=== PATIENT | female | born 1965 ===

== ENCOUNTER 2021-03-20 16:57 | Emergency (ER) | payer OTHER, MEDICAID, SELFPAY ==
--- NOTE | ~2021-03-20 | CT_ITS ---
EXAMINATION: CT ABDOMEN AND PELVIS WITH CONTRAST CLINICAL INFORMATION: Lower abdomen pain. Diarrhea. Clinical concern for colitis COMPARISON: None TECHNIQUE: Multidetector volumetric images were obtained from the superior aspect of the liver through the pubic symphysis following administration 85 mL of Omnipaque 350 intravenous contrast. Sagittal and coronal reformatted images were obtained on the technologist's workstation. Oral contrast: No This CT examination was performed using dose optimization techniques as appropriate, variously including the following: *Automated exposure control *Adjustment of mA and/or kV according to patient size (this includes techniques or standardized protocols for targeted exams where dose is matched to indication/reason for exam; i.e. extremities or head) *Use of iterative reconstruction technique DLP: 552 mGy-cm FINDINGS: Digital supervisor intermediates: No evidence of small bowel obstruction. Surgical clips right upper quadrant. No evidence of pneumoperitoneum LUNG BASES: No suspicious abnormality in the visualized lower chest LIVER, GALLBLADDER, AND BILIARY TREE: The liver contour is smooth. No suspicious focal lesion. There are surgical clips in the expected region of the gallbladder. There is no opaque biliary calculus. PANCREAS: No pancreatic mass. No localized peripancreatic stranding. SPLEEN: No suspicious abnormality. ADRENAL GLANDS: Within normal limits KIDNEYS AND URETERS: There is no significant dilation of the intrarenal collecting system on either side. No suspicious renal mass. The nephrograms are symmetric. BLADDER: No suspicious abnormality GASTROINTESTINAL TRACT: There is fluid in the colon suggesting some dysfunction. There is no definite colonic wall thickening. No pericolonic fat stranding. No CT evidence of acute appendicitis. No significant small bowel dilation. No suspicious abnormality the stomach. ABDOMINAL WALL: No significant hernia is appreciated. LYMPH NODES: There are no measurably enlarged abdominal or pelvic lymph nodes. There is no free peritoneal fluid. VASCULAR: There is no abdominal aortic aneurysm. There is atherosclerotic calcification. The portal vein enhances. PELVIC VISCERA: The uterus is retroflexed. No suspicious adnexal mass or collection. OSSEOUS STRUCTURES: No suspicious focal lesion. There is at least some disc protrusion at L5/S1. CT/CT abdomen pelvis w con IMPRESSION: No CT evidence of colitis or abscess. There is fluid throughout the colon which is abnormal.
[2021-03-20 17:25] VITALS: BP 96/66; PULSE 100; RESP 18; TEMP 37.3; O2SAT 96; BMI 27.1
--- NOTE | 2021-03-20 18:43 | ED.ABDPAIN ---
HPI - Abdominal Pain General Chief Complaint: Weakness Stated Complaint: diarrhea Time Seen by Provider: 03/20/21 18:39 Source: patient and family Mode of arrival: ambulatory Limitations: no limitations History of Present Illness MD elicited complaint: abdominal pain Pertinent past history: none Onset (ago): hour(s) (started upon waking early this AM) Pain Consistency: constant Location: diffuse Severity: moderate Quality: cramping Radiation: none Migration to: no migration Exacerbating factors: eating Relieving factors: nothing Context: possible food poisoning Associated symptoms: nausea, diarrhea and chills Related Data Previous Rx's Medication Instructions Recorded metronidazole [Flagyl] 500 mg PO BID 7 Days #14 tab 03/20/21 ondansetron 4 mg PO Q8H PRN #20 tab 03/20/21 oxycodone 5 mg PO TID PRN 3 Days #14 tab 03/20/21 Allergies Allergy/AdvReac Type Severity Reaction Status Date / Time No Known Allergies Allergy Unverified 05/14/20 19:29 Review of Systems Review of Systems Constitutional : No Weight loss, No Fever, pos Chills ENT/Mouth : No sore throat, No Rhinorrhea Eyes: No Swelling, No Redness Cardiovascular : No Chest Pain, No SOB, NoEdema Respiratory : No Cough, No Sputum, No Wheezing Gastrointestinal : Positive Nausea, no Vomiting, positive Diarrhea, positive abdominal Pain, No Hematochezia, No Melena Genitourinary : No Dysuria, No Urinary Frequency, No Hematuria, No Urgency Musculoskeletal : No joint pain, No Myalgias, No Joint Swelling Skin : No Skin Lesions, No rash Neuro : No Weakness, No Numbness, No Dizziness, No Headache Psych : No Anxiety/Panic, No Depression Heme/Lymph: No Bruising, No Lymphadenopathy Endocrine : No Polyuria, No Polydipsia All other systems reviewed and are negative. Physical Exam Vital Signs: Vital Signs: Last Vital Signs Temp 98.2 F 03/20/21 20:07 Pulse 77 03/20/21 20:07 Resp 18 03/20/21 20:07 BP 112/65 03/20/21 20:07 Pulse Ox 98 03/20/21 20:07 Body Mass Index 27.1 Appearance: Alert. Oriented X3. No acute distress. Eyes: Pupils equal, round and reactive to light. ENT: Pharynx normal. Neck: Normal inspection. Neck supple. CVS: Normal heart rate and rhythm. Pulses normal. Respiratory: No respiratory distress. Breath sounds normal. Abdomen: Soft and mild diffuse ttp with some distention Skin: Skin warm and dry. Normal skin color. Normal skin turgor. Extremities: No lower extremity edema. No calf ttp Neuro: Oriented X 3. No motor deficit. No sensory deficit. Course Course Course Narrative: patient feels much better able to tolerate PO without issue given CT scan will start on flagyl and start on BRAT diet, patient aware and agrees. slight bump in LFTs will refer for recheck by Monday MDM - Abdominal Pain MDM Narrative Medical decision making narrative: 55 yo female no sig PMH here with diarrhea, bloating, chills no recent abx use possible food poisoning at this time will need labs, IVF, symptom control, CT scan for colitis. Dispo per results and findings. Differential Diagnosis Differential diagnosis: Likely abdominal pain, gastroenteritis and gastritis; Unlikely aortic dissection and mesenteric ischemia Lab Data Result diagrams: 03/20/21 19:34 03/20/21 19:34 Labs: Lab Results 03/20/21 03/20/21 03/20/21 Range/Units 19:22 19:34 19:34 WBC 11.6 H (4.8-10.8) X10*3/uL RBC 4.79 (4.20-5.50) X10*6/uL Hgb 14.3 (12.0-16.0) g/dl Hct 42.8 (37-47) % MCV 89.4 (80-98) fL MCH 29.9 (27.0-33.0) pg MCHC 33.4 (31.0-35.0) g/dl RDW 13.8 (11.0-16.0) % Plt Count 309 (160-400) X10*3/uL MPV 10.8 (9.4-12.3) fL Immature Gran % (Auto) 0.3 (0.0-0.4) % Neut % (Auto) 84.8 H (45-73) % Lymph % (Auto) 9.7 L (20-40) % Rapides % (Auto) 4.7 (2-11) % Eos % (Auto) 0.4 (0-4) % Baso % (Auto) 0.1 (0-2) % Lymph # (Auto) 1.1 L (1.2-4.9) X10*3/uL Rapides # (Auto) 0.5 (0.1-1.2) X10*3/uL Eos # (Auto) 0.1 (0.0-0.4) X10*3/uL Baso # (Auto) 0.0 (0.0-0.2) X10*3/uL Abs Immat Gran (auto) 0.03 (0.00-0.03) X10*3/uL Absolute Neuts (auto) 9.8 H (2.0-8.3) X10*3/uL Absolute Nucleated RBC 0.000 (0.0-0.012) X10*3/uL Nucleated RBC % (auto) 0.0 (0.0-0.2) /100WBC Sodium 139 (135-145) mmol/L Potassium 3.7 (3.3-5.1) mmol/L Chloride 108 (96-108) mmol/L Carbon Dioxide 21 L (22-29) mmol/L Anion Gap 14 (12-20) BUN 15 (9-16) mg/dL Creatinine 0.66 (0.5-1.4) mg/dL Estim Creat Clear Calc 87.5 Estimated GFR > 60 Random Glucose 108 (60-115) mg/dL Calcium 8.5 (8.4-10.2) mg/dL Magnesium 2.0 (1.6-2.6) mg/dL Total Bilirubin 0.4 (0.0-1.0) mg/dL Direct Bilirubin < 0.2 (0.0-0.5) mg/dL AST 70 H (5-31) U/L ALT 75 H (0-31) U/L Alkaline Phosphatase 84 (39-117) U/L Total Protein 7.1 (6.5-8.0) g/dL Albumin 4.2 (3.5-5.0) g/dL Lipase 21 (8-78) U/L Urine Color YELLOW Urine Appearance CLEAR Urine pH 6.0 (5.0-8.0) Ur Specific Franklin >= 1.030 H (1.005-1.025) Urine Protein TRACE (NEG-TRACE) MG/DL Urine Glucose (UA) NEG (NEG) MG/DL Urine Ketones NEG (NEG) MG/DL Urine Blood 2+ H (NEG) Urine Nitrite NEG (NEG) Ur Leukocyte Esterase NEG (NEG) Urine RBC 5-9 H (0) /HPF Urine WBC 0-2 (0-4) /HPF Ur Squamous Epith Cells 1+ /LPF Urine Bacteria NONE /LPF Urine Mucus 2+ /LPF Discharge Plan Discharge Clinical Impression: Abdominal pain, Colitis, Elevated LFTs Patient Disposition: Home, Self-Care Instructions: Abdominal Pain (ED), Colitis (ED) Additional Instructions: return to ED for any worsening symptoms or concerns REPEAT LIVER FUNCTION TESTING WITH PRIMARY CARE DOCTOR IN 2 DAYS Prescriptions: New metronidazole [Flagyl] 500 mg tablet 500 mg PO BID 7 Days Qty: 14 RF: 0 oxycodone 5 mg tablet 5 mg PO TID PRN (Reason: pain) 3 Days Qty: 14 RF: 0 ondansetron 4 mg tablet,disintegrating 4 mg PO Q8H PRN (Reason: nausea and vomiting) Qty: 20 RF: 0 Referrals: Physician,Unknown [Primary Care Provider] - 2 days Stand Alone Forms: Work/School Release Print Language: Uzbek [facility] Past Medical History Attestation statement: The following information was validated with the patient. Medical History (Updated 03/20/21 @ 21:38 by Alina Deleon DO) No active medical problems Surgical History (Updated 03/20/21 @ 18:52 by Alina Deleon DO) Hx of cholecystectomy Social History Social History (Updated 03/20/21 @ 18:52 by Alina Deleon DO) Alcohol intake: never Patient Tobacco Use Status: Current someday Tobacco user Advance Directives: No
[2021-03-20] MEDS: Famotidine/PF 20 MG/2 ML VIAL IVPUSH (19:36)
[2021-03-20] MEDS: Ketorolac Tromethamine 15 MG/ML VIAL IVPUSH (19:36)
[2021-03-20] MEDS: ondansetron HCL 4 MG/2 ML VIAL IVPUSH (19:37)
[2021-03-20] MEDS: 0.9 % Sodium Chloride 1,000 ML 999 ML IVCONT ×2 (19:37→20:53)
[2021-03-20 19:40] LABS: MANUAL DIFF FLAG NO
[2021-03-20 19:41] LABS: Basophils Percent Auto 0.1 % (0-2); Eosinophils Absolute Auto 0.1 X10*3/uL (0.0-0.4); Eosinophils Percent Auto 0.4 % (0-4); Hematocrit 42.8 % (37-47); Hemoglobin 14.3 g/dl (12.0-16.0); Imm Gran Abs Auto 0.03 X10*3/uL (0.00-0.03); Imm Gran Pct Auto 0.3 % (0.0-0.4); Lymphocytes Absolute Auto 1.1 X10*3/uL (1.2-4.9); Lymphocytes Percent Auto 9.7 % (20-40); Mean Corpuscular HGB Conc 33.4 g/dl (31.0-35.0); Mean Corpuscular Hemoglobin 29.9 pg (27.0-33.0); Mean Corpuscular Volume 89.4 fL (80-98); Mean Platelet Volume 10.8 fL (9.4-12.3); Monocytes Absolute Auto 0.5 X10*3/uL (0.1-1.2); Monocytes Percent Auto 4.7 % (2-11); Neutrophils Absolute Auto 9.8 X10*3/uL (2.0-8.3); Neutrophils Percent Auto 84.8 % (45-73); Platelet Count 309 X10*3/uL (160-400); Red Blood Count 4.79 X10*6/uL (4.20-5.50); Red Cell Distribution Width 13.8 % (11.0-16.0); White Blood Count 11.6 X10*3/uL (4.8-10.8)
[2021-03-20 19:46] LABS: Glucose Urine UA NEG (NEG); Leukocyte Esterase Urine NEG (NEG); Nitrite Urine NEG (NEG); Specific Gravity - Urine >= 1.030 (1.005-1.025); Urine Blood 2+ (NEG); Urine Ketones NEG (NEG); Urine Protein TRACE MG/DL (NEG-TRACE)
[2021-03-20 19:47] LABS: Appearance Urine CLEAR; Color Urine YELLOW
[2021-03-20 20:02] LABS: Squamous Epithelial Cell Urine 1+ /LPF; WBC Urine 0-2 /HPF (0-4)
[2021-03-20 20:04] LABS: Mucus Urine 2+ /LPF
[2021-03-20 20:07] VITALS: BP 112/65; PULSE 77; RESP 18; TEMP 36.8; O2SAT 98
[2021-03-20 20:09] LABS: Alanine Aminotransferase 75 U/L (0-31); Albumin Level 4.2 g/dL (3.5-5.0); Alkaline Phosphatase 84 U/L (39-117); Anion Gap 14 (12-20); Aspartate Amino Transferase 70 U/L (5-31); Bilirubin Direct < 0.2 mg/dL (0.0-0.5); Bilirubin Total 0.4 mg/dL (0.0-1.0); Blood Urea Nitrogen 15 mg/dL (9-16); Calcium 8.5 mg/dL (8.4-10.2); Carbon Dioxide 21 mmol/L (22-29); Chloride 108 mmol/L (96-108); Creatinine Clr Calc Pharmacy 87.5; Estimated Glomerular Filt Rate > 60; Glucose Random 108 mg/dL (60-115); Lipase 21 U/L (8-78); Potassium 3.7 mmol/L (3.3-5.1); Sodium 139 mmol/L (135-145); Total Protein 7.1 g/dL (6.5-8.0)
[2021-03-20] MEDS: iohexoL 350 MG/ML 100 ML INFUS..BTL IV (20:57)
[2021-03-20] MEDS: metroNIDAZOLE 500 MG TABLET PO (21:46)
[2021-03-20 22:44] VITALS: BP 109/65; PULSE 93; RESP 18; TEMP 36.9; O2SAT 98
== END 2021-03-20 22:46 | disposition home or self-care (01) ==
PROVIDERS: Emergency Provider Emergency Medicine
DX: K52.9 Noninfective gastroenteritis and colitis, unspecified (principal); R10.9 Unspecified abdominal pain; R79.89 Other specified abnormal findings of blood chemistry; F17.210 Nicotine dependence, cigarettes, uncomplicated
CPT/HCPCS: 36415; 74177; 80048; 80076; 81001; 83690; 83735; 85025; 96361; 96374; 96375; 99284; J1885; J2405; Q9967

== ENCOUNTER 2021-12-01 11:59 | Outpatient (REF) | payer MEDICAID, OTHER, SELFPAY ==
--- NOTE | ~2021-12-01 | XR_ITS ---
EXAMINATION: XR LUMBOSACRAL SPINE CLINICAL INFORMATION: Low back pain COMPARISON: CT dated 03/20/2021 TECHNIQUE: Three views of the lumbosacral spine. FINDINGS: No acute fracture or traumatic malalignment. Vertebral body heights maintained. Mild loss of disc space height at L5-S1. Mild facet arthropathy L4-L5 and L5-S1. Paraspinal soft tissues unremarkable. XR/XR lumbar spine 2-3V IMPRESSION: * No acute findings. * Mild loss of disc space height at L5-S1. On the previous CT, there was a broad-based posterior disc protrusion at this level.
== END 2021-12-01 12:00 | disposition home or self-care (01) ==
LOC: HO.XRAY 11:59
PROVIDERS: Absent Provider Internal Medicine; PCP Internal Medicine; Visit Provider Registered Nurse Community Health
DX: M54.50 Low back pain, unspecified (principal)
CPT/HCPCS: 72100

== ENCOUNTER 2021-12-21 15:49 | Outpatient (REF) | payer MEDICAID, OTHER, SELFPAY ==
--- NOTE | ~2021-12-21 | MR_ITS ---
EXAMINATION: MR LUMBAR SPINE WITHOUT CONTRAST CLINICAL INFORMATION: Low back pain unspecified. COMPARISON: None TECHNIQUE: MRI of the lumbar spine was obtained using routine sequences without contrast. FINDINGS: The lumbar vertebral bodies maintain normal heights. There is disc height loss at L5-S1. The remainder the disc heights are preserved. No bone marrow edema is seen. The distal spinal cord appears normal. The conus medullaris terminates normally at the L1 level. The visualized paraspinal muscles and intra-abdominal and pelvic contents are within normal limits. SPINAL LEVELS: L1-L2: No posterior disc abnormality. No spinal canal or neural foraminal stenosis. L2-L3: No posterior disc abnormality. No spinal canal or neural foraminal stenosis. L3-L4: No posterior disc abnormality. No spinal canal or neural foraminal stenosis. L4-L5: Disc bulging with left foraminal/extraforaminal annular fissuring and moderate facet arthropathy. Bilateral subarticular stenosis and mild spinal canal stenosis. Left foraminal protrusion abuts the exiting left L4 nerve root. Mild narrowing the right neural foramen. L5-S1: Disc bulging with broad-based left subarticular protrusion resulting in compression of the traversing left S1 nerve root. Mild to moderate facet arthropathy. Mild to moderate bilateral neural foraminal stenosis. No significant narrowing of the spinal canal. MR/MR lumbar spine wo con IMPRESSION: At L5-S1 there is left subarticular protrusion causing compression of the traversing left S1 nerve root. Mild to moderate bilateral neural foraminal stenosis. At L4-L5 there is left foraminal protrusion causing abutment of the exiting left L4 nerve root.
== END 2021-12-21 15:50 | disposition home or self-care (01) ==
LOC: HO.MRI 15:49
PROVIDERS: Visit Provider Internal Medicine
DX: M51.26 Other intervertebral disc displacement, lumbar region (principal)
CPT/HCPCS: 72148

== ENCOUNTER 2021-12-29 12:56 | Outpatient (REF) | payer MEDICAID, OTHER, SELFPAY ==
--- NOTE | ~2021-12-29 | MM_ITS ---
EXAMINATION: BONE DENSITOMETRY CLINICAL INDICATION: Encounter for screening for osteoporosis. COMPARISON: This is the patient's baseline examination. TECHNIQUE: Using a [employer] DXA System (software version: 13.1) manufactured by [employer], dual-energy x-ray absorptiometry was performed of the lumbar spine and left hip. The images are of good technical quality. Summary results are attached. FINDINGS: AP SPINE L1-L4: BMD 1.046 g/cm2, Z-score -0.6, T-score -1.1, osteopenia. LEFT FEMUR, NECK: BMD 0.856 g/cm2, Z-score -0.5, T-score -1.3, osteopenia. LEFT FEMUR, TOTAL: BMD 0.937 g/cm2, Z-score -0.1, T-score -0.6, normal. IDENTIFIED RISK FACTORS: Early menopause, secondary osteoporosis, low calcium intake. HISTORY OF FRACTURE: None listed. MEDICATIONS: None listed. MM/XR DEXA axial skeleton IMPRESSION: 1. DIAGNOSIS: Osteopenia based on the lowest T-score value of -1.3 in the femoral neck applying World Health Organization criteria. 2. 10-YEAR FRACTURE RISK PREDICTION, FRAX: Major osteoporotic fracture (clinical spine, forearm, hip or shoulder) 3.4%. Hip fracture 0.2%. 3. Treatment Recommendations: NOF guidelines recommend consideration for treatment in postmenopausal women and men age 50 and older presenting with the following: -A hip or vertebral (clinical or morphometric) fracture. -T-score less than or equal to -2.5 at the femoral neck or spine after appropriate evaluation to exclude secondary causes. -Low bone mass at the hip or spine and a 10-year fracture probability by FRAX of greater than or equal to 3% for hip fracture or greater than or equal to 20% for major osteoporotic fracture based on the [place] adapted WHO algorithm. 4. Other Recommendations: All treatment decisions require clinical judgment and consideration of individual patient factors, including patient preferences, comorbidities, previous drug use, risk factors not captured in the FRAX model (e.g. frailty, falls, vitamin D deficiency, increased bone turnover, interval significant decline in bone density) and possible under or overestimation of fracture risk by FRAX. Additional medical evaluation for secondary cause of low bone mineral density may be appropriate. FUTURE SCAN RECOMMENDATION: People with diagnosed cases of osteoporosis or at high risk for fracture should have regular bone mineral density tests. For patients eligible for Medicare, routine testing is allowed once every 2 years. The testing frequency can be increased to one year for patients who have rapidly progressing disease, those who are receiving or discontinuing medical therapy to restore bone mass, or have additional risk factors.
--- NOTE | ~2021-12-29 | MM_ITS ---
EXAMINATION: MM SCREENING DIGITAL BREAST TOMOSYNTHESIS, BILATERAL CLINICAL INFORMATION: Screening. Asymptomatic. The lifetime risk of breast cancer based on the Tyrer-Cuzick Model is 9%. COMPARISON: Mammography: 06/05/2018 (new baseline) TECHNIQUE: Digital breast tomosynthesis is performed in both the craniocaudal and mediolateral oblique views along with computer-aided detection (CAD). Synthesized 2D images are generated from the tomosynthesis. FINDINGS: There are scattered areas of fibroglandular density (ACR BI-RADS breast composition Category b). There are no significant masses, abnormal calcifications, or other abnormalities. Parenchymal pattern is similar to prior exam. There is mild bilateral nipple retraction again seen. The axilla are unremarkable. No significant changes. MM/MM tomosynthesis screening BI IMPRESSION: No mammographic evidence of malignancy. ASSESSMENT: BI-RADS 2: Benign RECOMMENDATION: Routine annual mammography screening. This patient's information was entered into a reminder system with a target due date for their next mammogram.
== END 2021-12-29 12:57 | disposition home or self-care (01) ==
LOC: HO.MAMMO 12:56
PROVIDERS: Visit Provider Advanced Practice Midwife
DX: Z12.31 Encounter for screening mammogram for malignant neoplasm of breast (principal); Z13.820 Encounter for screening for osteoporosis; N95.1 Menopausal and female climacteric states
CPT/HCPCS: 77063; 77067; 77080

== ENCOUNTER 2022-10-22 07:06 | Outpatient (REF) | payer OTHER, SELFPAY ==
[2022-10-22 07:45] LABS: COVID-19 Test Negative (Negative); IDNOW Serial# BCCEAD1C
== END 2022-10-22 07:07 | disposition home or self-care (01) ==
LOC: HO.LAB 07:06
PROVIDERS: Visit Provider Internal Medicine
DX: Z20.822 Contact with and (suspected) exposure to COVID-19 (principal)
CPT/HCPCS: 87635

== ENCOUNTER → 2022-11-30 09:41 | Outpatient (BNVA) | payer OTHER, SELFPAY | PROVIDERS: PCP Internal Medicine; Visit Provider Internal Medicine | DX: R07.2 Precordial pain (principal); Z82.49 Family history of ischemic heart disease and other diseases of the circulatory system | CPT/HCPCS: 93005; 99202 ==

== ENCOUNTER 2023-02-08 22:01 | Emergency (ER) | payer OTHER, SELFPAY ==
[2023-02-08 22:14] VITALS: BP 120/66; PULSE 75; RESP 18; TEMP 36.6; O2SAT 98; BMI 26.5
[2023-02-08 23:34] VITALS: BP 130/73; PULSE 79; RESP 16; TEMP 36.4; O2SAT 98
--- NOTE | 2023-02-09 00:58 | ED.BACK ---
HPI - Back Pain/Injury General Chief Complaint: Back Pain/Injury Stated Complaint: pain Time Seen by Provider: 02/09/23 00:25 Source: patient and citizen participation specialist Mode of arrival: ambulatory Limitations: no limitations History of Present Illness HPI Narrative: 57-year-old female with history of back injury and chronic back pain presented with acute on chronic low back pain, patient declined any radiation of the back to the lower extremities, no urinary or stool incontinence, no weakness or numbness in the lower extremities, no recent trauma to the lower back. Related Data Previous Rx's Medication Instructions Recorded cyclobenzaprine 10 mg tablet 10 mg PO TID PRN muscle spasm #14 02/09/23 tabs naproxen 500 mg tablet (Naprosyn) 500 mg PO BID PRN pain #20 tabs 02/09/23 Allergies Allergy/AdvReac Type Severity Reaction Status Date / Time No Known Allergies Allergy Verified 11/30/22 10:01 Review of Systems Review of Systems: All other systems are reviewed and are negative Constitutional: Reports as per HPI and Reports no additional constitutional complaints Eyes: Reports as per HPI and Reports no additional eye complaints Reports system reviewed and no additional complaints, except as documented Cardiovascular: Reports as per HPI and Reports no additional cardiovascular complaints Respiratory: Reports as per HPI and Reports no additional respiratory complaints Gastrointestinal: Reports as per HPI and Reports no additional gastrointestinal complaints Genitourinary: Reports no additional female genitourinary complaints Musculoskeletal: Reports no additional musculoskeletal complaints Skin/Breast: Reports system reviewed and no additional complaints, except as docu Psychiatric: Reports no additional psychiatric complaints Endocrine: Reports no additional endocrine complaints Hematologic/Lymphatic: Reports no additional hematologic/lymphatic complaints Allergic/Immunologic: Reports no additional allergic/immunologic complaints Reports system reviewed and no additional complaints, except as documented and Reports Abnormal speech present [facility] [place] Past Medical History Medical History No active medical problems Surgical History Hx of cholecystectomy Family History Family History Mother Heart problem Father Stroke Social History Social History Alcohol intake: never Patient Tobacco Use Status: Former Tobacco user Quit Date: 2020 Advance Directives: No Advance Directives Information Provided: Yes Physical Exam Vital Signs: Vital Signs: Last Vital Signs Temp 97.6 F 02/08/23 23:34 Pulse 79 02/08/23 23:34 Resp 16 02/08/23 23:34 BP 130/73 02/08/23 23:34 Pulse Ox 98 02/08/23 23:34 O2 Del Method Room Air 02/08/23 23:34 BMI result Body Mass Index 26.5 Vital signs have been reviewed as appeared to be correct. Blood pressure normal. Heart rate normal. Respiration rate normal. Temperature normal. Oxygen saturation normal. Appearance: Alert. Oriented X3. No acute distress. Head: Normal external exam. Normocephalic. Atraumatic. No Nunes signs noted. No raccoon eyes noted Eyes: PERRLA. EOMI. Conjunctiva and sclera normal. Eyelids normal. ENT: TM's Normal. Pharynx normal. Uvula midline. Moist mucous membranes. No trismus noted. No drooling noted. No muffled voice noted. Neck: Normal inspection. Neck supple. FROM. No adenopathy. Thyroid Normal. No meningeal signs. No neck mass noted. CVS: Normal heart rate and rhythm. Heart sound normal. No murmurs noted. Pulses normal throughout. Respiratory: No respiratory distress. Painless inspiration. Breath sounds normal. No wheezes/rales/rhonchi noted. Chest nontender. No accessory muscle usage noted or decreased air movement noted. Abdomen: Soft and nontender. Bowel sounds normal in all 4 quadrants. No distention noted. No organomegaly noted. No visible injury noted. Back: No CVA tenderness. Full range of motion noted. Skin: Skin warm and dry. Normal skin color. Normal skin turgor. No rashes/lesions/lacerations noted. Extremities: No lower extremity edema. Extremities exhibit normal range of motion. Extremities nontender. Neuro: Oriented X 3. Cranial nerve exam: II-XII are grossly intact No motor deficit. No sensory deficit. Reflexes normal. Course Course Course Narrative: Acute on chronic low back pain. Muscle relaxing, NSAIDs, rest, heating pad. Medical Decision Making Differential Diagnosis Differential Diagnoses: The differential diagnosis associated with the presentation includes (Lumbar radiculopathy, lumbar muscle sprain, neurological deficit.) Discharge Plan Discharge Clinical Impression: Strain of lumbar region Patient Disposition: Home, Self-Care Instructions: Muscle Strain (DC) Prescriptions: New cyclobenzaprine 10 mg tablet 10 mg PO TID PRN (Reason: muscle spasm) Qty: 14 0RF naproxen [Naprosyn] 500 mg tablet 500 mg PO BID PRN (Reason: pain) Qty: 20 0RF Stand Alone Forms: Work/School Release
[2023-02-09] MEDS: Cyclobenzaprine HCl 10 MG TABLET PO (01:24)
[2023-02-09] MEDS: Ibuprofen 800 MG TABLET PO (01:24)
== END 2023-02-09 01:30 | disposition home or self-care (01) ==
PROVIDERS: Emergency Provider Emergency Medicine
DX: S39.012A Strain of muscle, fascia and tendon of lower back, initial encounter (principal); X58.XXXA Exposure to other specified factors, initial encounter; Y93.9 Activity, unspecified; Y92.9 Unspecified place or not applicable; Y99.9 Unspecified external cause status; G89.29 Other chronic pain
CPT/HCPCS: 99283

== ENCOUNTER 2023-03-20 16:42 | Outpatient (REF) | payer OTHER, SELFPAY ==
[2023-03-20 18:15] LABS: Anion Gap 11 (12-20); Blood Urea Nitrogen 17 mg/dL (9-16); Calcium 9.4 mg/dL (8.4-10.2); Carbon Dioxide 27 mmol/L (22-29); Chloride 106 mmol/L (96-108); Estimated Glomerular Filt Rate > 60; Glucose Random 94 mg/dL (60-115); Potassium 4.1 mmol/L (3.3-5.1); Sodium 140 mmol/L (135-145)
[2023-03-20 18:20] LABS: Alanine Aminotransferase 23 U/L (0-31); Albumin Level 4.2 g/dL (3.5-5.0); Alkaline Phosphatase 81 U/L (39-117); Aspartate Amino Transferase 25 U/L (5-31); Bilirubin Direct < 0.2 mg/dL (0.0-0.5); Bilirubin Total 0.2 mg/dL (0.0-1.0); Total Protein 7.3 g/dL (6.5-8.0)
== END 2023-03-20 16:43 | disposition home or self-care (01) ==
LOC: HO.HHCL 16:42
PROVIDERS: Absent Provider Internal Medicine; Visit Provider Family Medicine
DX: R07.2 Precordial pain (principal); B35.1 Tinea unguium
CPT/HCPCS: 36415; 80048; 80076

== ENCOUNTER → 2023-03-24 15:22 | Outpatient (BNVA) | payer OTHER, SELFPAY | PROVIDERS: Visit Provider Physician Assistant | DX: Z13.89 Encounter for screening for other disorder (principal) | CPT/HCPCS: 12001; 99203 ==

== ENCOUNTER → 2023-03-28 13:55 | Outpatient (BNVA) | payer OTHER, SELFPAY | PROVIDERS: Visit Provider Physician Assistant Medical | DX: Z13.89 Encounter for screening for other disorder (principal) | CPT/HCPCS: 99213 ==

== ENCOUNTER 2023-03-30 09:19 | Outpatient (AMB) | payer OTHER, SELFPAY ==
--- NOTE | 2023-03-30 09:24 | MHC.OFFVIS ---
Intake Vital Signs 03/30/23 09:25 Height 5 ft 5 in Weight 162 lb 4.163 oz BMI 27.0 BP 116/70 Blood Pressure Location Rt brachial Position Sitting Pulse 68 Pulse Source Pulse Oximeter Temp 97.5 F Pulse Oximetry (%) 97 Oxygen Delivery Method Room Air Intake Visit Reasons: Paresthesias Intake Note: Pt presents in office for Paresthesias. Meat Carrier Required: Yes Meat Carrier Name: Michel Allergies No Known Allergies Allergy (Verified 03/30/23 09:33) HPI HPI Comments History of Present Illness Details This is a 57-year-old female who presents for evaluation of multiple joint pain. Patient states that she has had lower back pain that intermittently radiates to or legs for about 6 years. He the pain is worse with certain movements. Improved with anti-inflammatories and muscle relaxants. For the last 2 years she has had left elbow pain. She also has left medial knee pain and right posterior knee pain. A few days ago she cut the ulnar aspect of her right hand while cleaning. She has a Band-Aid on it today. Patient denies any family history of autoimmune rheumatic disease. Denies any history of DVT/PE. Patient had 4 pregnancies and 1 miscarriage. She denies any skin rash PFSH Medical History (Updated 03/30/23 @ 10:36 by Robin Michael MD) No active medical problems Surgical History (Updated 03/30/23 @ 09:37 by Radha Stafford CMA) History of section Hx of cholecystectomy Family History Mother Heart problem Father Stroke Social History (Updated 03/30/23 @ 09:38 by Radha Stafford CMA) Alcohol intake: never Patient Tobacco Use Status: Former Tobacco user Quit Date: 2020 Female Reproductive History Menstrual Total pregnancies: 4 Ab spontaneous: 1 Review of Systems Const Reports fatigue Eyes Reports dry eyes, Reports irritation and Reports eye pain Card Reports dyspnea Resp Reports cough and Reports dyspnea GI Reports heartburn and Reports nausea Musc Reports back pain, Reports deformity and Reports arthralgias Skin/Breast Denies rash Endo Reports fatigue Physical Exam Vital Signs: Last Vital Signs Temp 97.5 F 03/30/23 09:25 Pulse 68 03/30/23 09:25 BP 116/70 03/30/23 09:25 Pulse Ox 97 03/30/23 09:25 Oxygen Delivery Method Room Air 03/30/23 09:25 BMI result Body Mass Index 27.0 Const General: cooperative, healthy appearing and comfortable Nutritional Appearance: overweight Orientation/consciousness: patient oriented x3 Limitations: no limitations HEENT Head: Yes normocephalic and Yes atraumatic Mouth: moist mucous membranes Resp Effort & Inspection: normal respiratory effort and able to speak in complete sentences Auscultation: clear to auscultation bilaterally Cardio Rate: regular rate Rhythm: regular rhythm GI Inspection: No distended Palpation (GI): Soft to palpation and nontender Neuro General: patient oriented x3 Extrem Other: Some tenderness to palpation the left medial epicondyle area Negative resisted wrist extension test bilaterally Normal range of motion of both shoulders No active synovitis Some osteoarthritic changes of both hands with prominent Magali's and Heberden's nodes Left medial knee tenderness Assessment & Plan Assessment & Plan (1) Golfers elbow of left upper extremity: Code(s): M77.02 - Medial epicondylitis, left elbow Plan: Check an elbow x-ray Referred to occupational therapy,apply Voltaren gel (2) TOD positive: Code(s): R76.8 - Other specified abnormal immunological findings in serum Plan: This is a 57-year-old female who presents for evaluation of a positive TOD. 1-40 DFS and 1-40 homogeneous pattern. I do not see any evidence of autoimmune rheumatic disease upon my evaluation. No need for further testing at this point. Will continue to monitor patient for the development of autoimmune rheumatic disease. (3) Degenerative lumbar disc: Code(s): M51.36 - Other intervertebral disc degeneration, lumbar region Plan: Start PT (4) Bilateral primary osteoarthritis of knee: Code(s): M17.0 - Bilateral primary osteoarthritis of knee Plan: Bilateral knee pain. Advised patient to start physical therapy. Will check bilateral knee x-rays Plan I spent 47 minutes reviewing patient's chart, evaluating patient, ordering diagnostic workup, counseling patient and documenting in the chart Orders: Orders OT Evaluation and Treatment Today M77.02 - Medial epicondylitis, left elbow XR knee LT 3V Today M25.561 - Pain in right knee, M25.562 - Pain in left knee XR knee RT 3V Today M25.561 - Pain in right knee, M25.562 - Pain in left knee XR knee standing BI Today M25.561 - Pain in right knee, M25.562 - Pain in left knee XR elbow LT min 3V Today M77.02 - Medial epicondylitis, left elbow PT Evaluation and Treatment Today M17.0 - Bilateral primary osteoarthritis of knee PT Evaluation and Treatment Today M51.36 - Other intervertebral disc degeneration, lumbar region Coding Level of Care Code New Pt Level 4 (52396) Diagnoses Golfers elbow of left upper extremity M77.02 TOD positive R76.8 Degenerative lumbar disc M51.36 Bilateral primary osteoarthritis of knee M17.0
[2023-03-30 09:25] VITALS: BP 116/70; PULSE 68; TEMP 36.4; O2SAT 97; BMI 27.0
== END 2023-03-30 10:19 | disposition home or self-care (01) ==
PROVIDERS: PCP Emergency Medicine; Visit Provider Student in an Organized Health Care Education/Training Program
DX: M77.02 Medial epicondylitis, left elbow (principal); R76.8 Other specified abnormal immunological findings in serum; M51.36 Other intervertebral disc degeneration, lumbar region; M17.0 Bilateral primary osteoarthritis of knee
CPT/HCPCS: 99204

== ENCOUNTER → 2023-03-30 09:19 | Outpatient (BNVA) | payer OTHER, SELFPAY | PROVIDERS: Visit Provider Student in an Organized Health Care Education/Training Program | DX: M77.02 Medial epicondylitis, left elbow (principal); M51.36 Other intervertebral disc degeneration, lumbar region; M17.0 Bilateral primary osteoarthritis of knee; R76.8 Other specified abnormal immunological findings in serum | CPT/HCPCS: 99202 ==

== ENCOUNTER → 2023-03-30 14:32 | Outpatient (BNVA) | payer OTHER, SELFPAY | PROVIDERS: Visit Provider Internal Medicine | DX: Z13.89 Encounter for screening for other disorder (principal) | CPT/HCPCS: 99212; 99213 ==

== ENCOUNTER → 2023-04-06 14:23 | Outpatient (BNVA) | payer OTHER, SELFPAY | PROVIDERS: Visit Provider Physician Assistant | DX: Z13.89 Encounter for screening for other disorder (principal) | CPT/HCPCS: 99213 ==

== ENCOUNTER 2023-04-18 13:36 | Outpatient (REF) | payer OTHER, SELFPAY ==
--- NOTE | ~2023-04-18 | XR_ITS ---
EXAMINATION: XR LEFT ELBOW, LEFT KNEE, RIGHT ELBOW CLINICAL INFORMATION: Medial epicondylitis left elbow. Bilateral knee pain COMPARISON: None TECHNIQUE: 3 views left elbow. 4 views of each knee. FINDINGS: Left elbow: Alignment preserved. No displaced fracture. No joint effusion. No abnormal soft tissue calcifications. Left knee: Trace joint effusion. Mild medial joint space narrowing with small medial marginal osteophytes. Right knee: Trace joint effusion. Mild medial joint space narrowing with small medial marginal osteophytes. XR/XR knee LT 4V IMPRESSION: 1. No displaced left fracture left elbow. Recommend follow-up imaging in 10-14 days if fracture is suspected. 2. Mild degenerative changes bilateral knees. Additional imaging with CT scan or MRI should be considered for better visualization as these modalities are much more sensitive for detection of fracture or other underlying pathology.
--- NOTE | ~2023-04-18 | XR_ITS ---
EXAMINATION: XR LEFT ELBOW, LEFT KNEE, RIGHT ELBOW CLINICAL INFORMATION: Medial epicondylitis left elbow. Bilateral knee pain COMPARISON: None TECHNIQUE: 3 views left elbow. 4 views of each knee. FINDINGS: Left elbow: Alignment preserved. No displaced fracture. No joint effusion. No abnormal soft tissue calcifications. Left knee: Trace joint effusion. Mild medial joint space narrowing with small medial marginal osteophytes. Right knee: Trace joint effusion. Mild medial joint space narrowing with small medial marginal osteophytes. XR/XR elbow LT min 3V IMPRESSION: 1. No displaced left fracture left elbow. Recommend follow-up imaging in 10-14 days if fracture is suspected. 2. Mild degenerative changes bilateral knees. Additional imaging with CT scan or MRI should be considered for better visualization as these modalities are much more sensitive for detection of fracture or other underlying pathology.
--- NOTE | ~2023-04-18 | XR_ITS ---
EXAMINATION: XR LEFT ELBOW, LEFT KNEE, RIGHT ELBOW CLINICAL INFORMATION: Medial epicondylitis left elbow. Bilateral knee pain COMPARISON: None TECHNIQUE: 3 views left elbow. 4 views of each knee. FINDINGS: Left elbow: Alignment preserved. No displaced fracture. No joint effusion. No abnormal soft tissue calcifications. Left knee: Trace joint effusion. Mild medial joint space narrowing with small medial marginal osteophytes. Right knee: Trace joint effusion. Mild medial joint space narrowing with small medial marginal osteophytes. XR/XR knee RT 4V IMPRESSION: 1. No displaced left fracture left elbow. Recommend follow-up imaging in 10-14 days if fracture is suspected. 2. Mild degenerative changes bilateral knees. Additional imaging with CT scan or MRI should be considered for better visualization as these modalities are much more sensitive for detection of fracture or other underlying pathology.
== END 2023-04-18 13:37 | disposition home or self-care (01) ==
LOC: HO.XRAY 13:36
PROVIDERS: Visit Provider Student in an Organized Health Care Education/Training Program
DX: M77.02 Medial epicondylitis, left elbow (principal); M25.561 Pain in right knee; M25.562 Pain in left knee
CPT/HCPCS: 73080; 73564

== ENCOUNTER → 2023-05-10 13:01 | Outpatient (REF) | payer OTHER, SELFPAY ==
--- NOTE | 2023-05-10 13:05 | CA_ITS ---
Transthoracic Echocardiogram Patient (Last, First, Middle): Roxann Wylie A Gender: Female Date of : 1965 Age: 57 Procedure Date: 05/10/2023 Procedure Type: Transthoracic Echocardiogram Location: OP Height: 162.56 cm Weight: 74.39 kg BSA: 1.80 m2 Heart Rate: 62 bpm BP: 105 / 65 mmHg Food Stand Manager: RODNEY Referring MD: Bj Alcantara MD Symptoms: R07.2 - Precordial pain Study Quality: Adequate ECG Rhythm: Sinus Conclusions: - The left ventricular systolic function is normal. The calculated ejection fraction is 66% by biplane method. - No obvious valvular pathology seen on this study. Findings Left Ventricle Normal left ventricular cavity size. There is normal left ventricular wall thickness. The left ventricular systolic function is normal. The calculated ejection fraction is 66% by biplane method. There is no evidence of regional wall motion abnormalities. Diastolic function is normal for age. LV peak GLS -19.6%. Right Ventricle Normal right ventricular cavity size and systolic function. Atria Both atria are normal in size. Aortic Valve There is a normal trileaflet aortic valve. There is no aortic valve stenosis. There is no aortic valve regurgitation. Mitral Valve The mitral valve appears normal. There is no mitral valve regurgitation. There is no mitral valve stenosis. Pulmonic Valve The pulmonic valve is likely normal. Tricuspid Valve Normal tricuspid valve structure. There is mild tricuspid valve regurgitation. There is no evidence of pulmonary hypertension. Great Vessels The asc aorta is normal in size. Venous The inferior vena cava is normal in size and collapses greater than 50% with inspiration. Pericardium/Pleural There is a trivial pericardial effusion. Prior Study Comparison No prior study available for comparison. Reporting delayed due to technical reasons. Recommendations, Care & Conclusions No obvious valvular pathology seen on this study. Measurements 2D Linear Measurements IVSd: 0.70 0.6-0.9/0.6-1.0 cm LVIDd: 4.20 3.9-5.3/4.2-5.9 cm LVIDd Index: 2.33 2.4-3.2/2.2-3.1 cm/m2 LVIDs: 2.50 2.0-3.6 cm LVPWd: 0.70 0.7-1.1 cm LA Diam: 3.20 2.7-3.8/3.0-4.0 cm LAIDs Index: 1.78 1.5-2.3 cm/m2 LV Mass: 105.59 67-162/88-224 g LV Mass Index: 58.66 43-95/49-115 g/m2 LVOT Diam: 1.80 3.0+(-)1.3 cm 2D Systolic Function EF 4C: 67.50 >55% EF 2C: 65.40 >55% EF BiP: 66.00 >55% Mitral Valve MV Pk E: 0.85 MV PK A: 0.80 MV Decel Time: 215.00 E/A: 1.10 E'Lateral: 9.00 E'Medial: 6.57 E/E' Med: 13.00 E/E' Lat: 9.50 PHT: 63.00 MVA PHT: 3.49 Decel [place]: 3.97 Aortic Valve AoV Pk Jamarcus: 1.35 AoV Mn Jamarcus: 0.93 AoV VTI: 0.31 AoV Pk Grad: 7.00 Aov Mn Grad: 4.00 ALBINO Cont.VTI: 2.07 LVOT LVOT Pk Jamarcus: 1.20 LVOT Mn Jamarcus: 0.83 LVOT VTI: 0.25 LVOT Pk Grad: 6.00 LVOT Mn Grad: 3.00 LVOT Diam: 1.80 LVOT Area: 2.54 Diastolic Function MV Pk E: 0.85 MV Pk A: 0.80 E/A: 1.10 E'Medial: 6.57 E/E' Med: 13.00 E' Laterial: 9.00 E/E' Lat: 9.50 Right Ventricle TAPSE (mm): 24.40 TVS' Jamarcus: 13.50 Tricuspid Valve TR Pk Jamarcus: 2.26 TR Pk Grad: 20.00 RA Press: 3.00 RVSP: 23.00 Great Vessels Aorta Sinus of Valsalva: 3.10 2.0-3.5 cm Ao Asc: 3.40 2.1-3.4 cm Pulmonary Valve PV Pk Jamarcus: 1.09 Peak PV Grad: 5.00 Updated in Other Vendor System with Status of Final Bj Alcantara MD electronically signed on 05/13/2023 12:02:57 PM with status of Final
== END ==
LOC: HO.CARD 13:01
PROVIDERS: Visit Provider Internal Medicine
DX: R07.2 Precordial pain (principal)
CPT/HCPCS: 93306; 93356

== ENCOUNTER → 2023-05-10 13:05 | Outpatient (BNV) | payer OTHER, SELFPAY | PROVIDERS: Visit Provider Internal Medicine | DX: I36.1 Nonrheumatic tricuspid (valve) insufficiency (principal) | CPT/HCPCS: 93306 ==

== ENCOUNTER → 2023-05-11 11:07 | Outpatient (REF) | payer OTHER, SELFPAY ==
--- NOTE | 2023-05-11 11:09 | CA_ITS ---
Acquisition Time: 2023-05-11 11:34:22 Total Exercise Time: 00:06:30 Test Indications: CHEST PAIN Medications: NONE Protocol: JAKE Max HR: 160 BPM 97% of Pred: 164 BPM Max BP: 122/070 mmHG Max Work Load: 7.7 METS Exercise stress test exercise 6 min 30 sec of Jake protocol achieving 95% MPHR, with mild SOB, no chest discomfort, without arrhythmias, with normotensive response to exercise, without EKG changes. Echo images obtained by tech at rest and immedately post exercise. Definity contrast used. Test reviewed lynsey Alcantara. Referred By: Bj Alcantara Overread By: Nevin Lyons
== END ==
LOC: HO.CARD 11:07
PROVIDERS: Visit Provider Internal Medicine
DX: R07.2 Precordial pain (principal)
CPT/HCPCS: 93350; Q9957

== ENCOUNTER → 2023-05-11 11:09 | Outpatient (BNV) | payer OTHER, SELFPAY | PROVIDERS: Visit Provider Nurse Practitioner | DX: R06.02 Shortness of breath (principal) | CPT/HCPCS: 93016; 93018; 93350; 93352 ==

== ENCOUNTER 2023-06-29 12:56 | Outpatient (AMB) | payer OTHER, SELFPAY ==
--- NOTE | 2023-06-29 12:58 | A.OFFVIS_ITS ---
Intake Vital Signs 06/29/23 12:59 Height 5 ft 5 in Weight 159 lb 13.362 oz BMI 26.6 BP 112/62 Blood Pressure Location Rt brachial Position Sitting Pulse 65 Pulse Source Pulse Oximeter Temp 97.2 F Temp Source Skin Pulse Oximetry (%) 97 Intake Visit Reasons: 3 mnts f/u appt Intake Note: Pt last seen 03/29/23, presents today for follow up and x-ray results. She has not yet scheduled PT and OT, she needs to call them. Reports issues with insurance, she will be getting new insurance soon. Construction Pit Worker Required: Yes Construction Pit Worker Name: Nataly [id number] Information Interpreted: clinical only Accompanied by: Self / Same As Patient Allergies No Known Allergies Allergy (Verified 06/29/23 13:01) Medication List - Last Reconciled 06/29/23 by Robin Michael MD calcium carbonate-vitamin D3 600 mg-10 mcg (400 unit) 1 tab PO BID cyclobenzaprine 10 mg PO TID PRN naproxen (Naprosyn) 500 mg PO BID PRN terbinafine HCl 250 mg PO QAM HPI HPI Comments History of Present Illness Details Patient returns for follow-up. She states that she did not go to PT or OT due to a change in her insurance. She states however that her elbows and knees are feeling better. She has no complaints today Initial history: This is a 57-year-old female who presents for evaluation of multiple joint pain. Patient states that she has had lower back pain that intermittently radiates to or legs for about 6 years. He the pain is worse with certain movements. Improved with anti-inflammatories and muscle relaxants. For the last 2 years she has had left elbow pain. She also has left medial knee pain and right posterior knee pain. A few days ago she cut the ulnar aspect of her right hand while cleaning. She has a Band-Aid on it today. Patient denies any family history of autoimmune rheumatic disease. Denies any history of DVT/PE. Patient had 4 pregnancies and 1 miscarriage. She denies any skin rash PFSH Medical History No active medical problems Surgical History History of section Hx of cholecystectomy Family History Mother Heart problem Father Stroke Social History Alcohol intake: never Patient Tobacco Use Status: Former Tobacco user Quit Date: 2020 Review of Systems Musc Denies arthralgias and Denies joint swelling Physical Exam Vital Signs: Last Vital Signs Temp 97.2 F 06/29/23 12:59 Pulse 65 06/29/23 12:59 BP 112/62 06/29/23 12:59 Pulse Ox 97 06/29/23 12:59 BMI result Body Mass Index 26.6 Const General: cooperative, healthy appearing and comfortable Nutritional Appearance: overweight Orientation/consciousness: patient oriented x3 Limitations: no limitations HEENT Head: Yes normocephalic and Yes atraumatic Mouth: moist mucous membranes Resp Effort & Inspection: normal respiratory effort and able to speak in complete sentences Cardio Rate: regular rate Rhythm: regular rhythm GI Inspection: No distended Palpation (GI): Soft to palpation and nontender Neuro General: patient oriented x3 Extrem Other: Today the left medial epicondyle area is not tender Negative resisted wrist extension test bilaterally Normal range of motion of both shoulders No active synovitis Some osteoarthritic changes of both hands with prominent Magali's and Heberden's nodes Assessment & Plan Assessment & Plan (1) Golfers elbow of left upper extremity: Code(s): M77.02 - Medial epicondylitis, left elbow Plan: Elbow x-ray was unremarkable. I had referred patient to PT/OT last visit but she was unable to go. Symptoms resolved spontaneously. (2) TOD positive: Code(s): R76.8 - Other specified abnormal immunological findings in serum Plan: Patient has a positive 1-40 DFS and 1-40 homogeneous pattern. I do not see any evidence of autoimmune rheumatic disease upon my evaluation. No need for further testing at this point. Follow-up as needed Plan I spent 17 minutes reviewing patient's chart, evaluating patient, counseling patient and documenting in the chart Coding Level of Care Code Est Pt Level 3 (55153) Diagnoses Golfers elbow of left upper extremity M77.02 TOD positive R76.8
[2023-06-29 12:59] VITALS: BP 112/62; PULSE 65; TEMP 36.2; O2SAT 97; BMI 26.6
== END 2023-06-29 13:17 | disposition home or self-care (01) ==
PROVIDERS: Visit Provider Student in an Organized Health Care Education/Training Program
DX: M77.02 Medial epicondylitis, left elbow (principal); R76.8 Other specified abnormal immunological findings in serum
CPT/HCPCS: 99213

== ENCOUNTER → 2023-06-29 12:56 | Outpatient (BNVA) | payer OTHER, SELFPAY | PROVIDERS: Visit Provider Student in an Organized Health Care Education/Training Program | DX: M77.02 Medial epicondylitis, left elbow (principal); R76.8 Other specified abnormal immunological findings in serum | CPT/HCPCS: 99212 ==

== ENCOUNTER 2023-09-29 07:12 | Outpatient (REF) | payer OTHER, SELFPAY ==
[2023-09-29 07:39] LABS: MANUAL DIFF FLAG NO
[2023-09-29 08:26] LABS: Basophils Absolute Auto 0.1 X10*3/uL (0.0-0.2); Eosinophils Absolute Auto 0.1 X10*3/uL (0.0-0.4); Eosinophils Percent Auto 2.4 % (0-4); Hematocrit 38.9 % (37.0-47.0); Hemoglobin 12.9 g/dl (12.0-16.0); Imm Gran Abs Auto 0.01 X10*3/uL (0.00-0.03); Imm Gran Pct Auto 0.2 % (0.0-0.4); Lymphocytes Absolute Auto 1.8 X10*3/uL (1.2-4.9); Lymphocytes Percent Auto 30.4 % (20-40); Mean Corpuscular HGB Conc 33.2 g/dl (31.0-35.0); Mean Corpuscular Hemoglobin 29.1 pg (27.0-33.0); Mean Corpuscular Volume 87.6 fL (80.0-98.0); Mean Platelet Volume 11.6 fL (9.4-12.3); Monocytes Absolute Auto 0.4 X10*3/uL (0.1-1.2); Monocytes Percent Auto 7.3 % (2-11); Neutrophils Absolute Auto 3.5 x10*3/uL (2.0-8.3); Neutrophils Percent Auto 58.7 % (45-73); Platelet Count 322 X10*3/uL (160-400); Red Blood Count 4.44 X10*6/uL (4.20-5.50); Red Cell Distribution Width 13.5 % (11.0-16.0); White Blood Count 5.9 X10*3/uL (4.8-10.8)
[2023-09-29 08:27] LABS: Estimated Average Glucose 120 mg/dL; Hemoglobin A1c % 5.8 % (<6.0)
[2023-09-29 09:09] LABS: Cholesterol 216 mg/dL (<200); HDL Cholesterol 53 mg/dL (>40); LDL Cholesterol Calculated 140 mg/dL (<100); Triglycerides 116 mg/dL (<150)
[2023-09-29 09:14] LABS: HIV AB/AG Nonreactive (Nonreactive); HIV Num 1 0.04 S/CO (0.00-0.99)
[2023-09-29 09:26] LABS: Vitamin B12 332 pg/mL (200-900)
[2023-09-29 09:35] LABS: TSH reflex Free T4 1.56 uIU/mL (0.32-4.0)
[2023-10-02 18:08] LABS: RPR Rapid Plasma Reagin NON-REACTIVE (NON-REACTIVE)
== END 2023-09-29 07:13 | disposition home or self-care (01) ==
LOC: HO.MAMMO 07:12
PROVIDERS: PCP Nurse Practitioner Primary Care; Visit Provider Nurse Practitioner Primary Care
DX: Z12.31 Encounter for screening mammogram for malignant neoplasm of breast (principal); R20.0 Anesthesia of skin; R20.2 Paresthesia of skin; R73.09 Other abnormal glucose; Z00.00 Encounter for general adult medical examination without abnormal findings
CPT/HCPCS: 36415; 77063; 77067; 80061; 82607; 83036; 84443; 85025; 86592; 87389

== ENCOUNTER → 2023-09-29 12:45 | Outpatient (BNV) | payer OTHER, SELFPAY | PROVIDERS: PCP Nurse Practitioner Primary Care; Visit Provider Radiology Diagnostic Radiology | DX: Z12.31 Encounter for screening mammogram for malignant neoplasm of breast (principal) | CPT/HCPCS: 77063; 77067 ==

== ENCOUNTER 2023-10-26 13:27 | Outpatient (AMB) | payer OTHER, SELFPAY ==
[2023-10-26 13:40] VITALS: BMI 26.5
--- NOTE | 2023-10-26 13:40 | MHC.OFFVIS ---
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 No swelling or redness. States she went to [place] to try to have a spider vein treatment but that they messed up at the surgical center That was about 2 years ago. Accompanied by: Self / Same As Patient Allergies No Known Allergies Allergy (Verified 10/26/23 13:46) HPI [facility] Referral for VV with pain HPI Details 58-year-old female patient presents for painful varicose veins. Complaints include pain over varicosities, swelling of lower extremities, and calf swelling. It has been affecting there daily activities including walking. It is noted more so in right leg. Patient denies any previous venous surgery or injections. Patient denies any history of DVT/ PE. Patient denies any history of phlebitis. Trial of compression includes - [id number] They now present for vascular evaluation regarding their varicose veins. [facility] Medical History No active medical problems Surgical History History of section Hx of cholecystectomy Family History Mother Heart problem Father Stroke Social History Alcohol intake: never Patient Tobacco Use Status: Former Tobacco user Quit Date: 2020 Review of Systems Const Reports as per HPI ENT Reports no additional complaints Card Denies chest pain, Denies chest pain at rest and Denies chest pain with activity Resp Denies chest congestion and Denies cough GI Reports no additional complaints Musc Details: pain over varicosities, aching of lower extremities, swelling, cramping, heaviness and tiredness, itching Denies abnormal gait Skin/Breast Reports pruritus and Denies wounds Neuro Reports no additional complaints and Denies abnormal gait Psych Denies no additional complaints Physical Exam Vital Signs: BMI result Body Mass Index 26.5 Const General: cooperative, healthy appearing and comfortable Orientation/consciousness: oriented to person, oriented to place and oriented to time Neck Carotids: no bruits Chest Chest palpation & inspection: normal inspection of the chest and normal palpation of entire chest wall Resp Effort & Inspection: normal respiratory effort and able to speak in complete sentences Cardio Rate: regular rate Heart sounds: S1 normal heart sound present and S2 normal heart sound present Peripheral pulses: Peripheral pulses 2+ throughout GI Inspection: Yes normal to inspection Skin Other: +2 edema, spider telangiectasias CEAP Classification C4 - skin color changes Ep - Etiology Primary As - superficial veins P - reflux General skin exam: dry skin Neuro General: oriented to person, oriented to place and oriented to time Extrem Right lower extremity: full ROM, normal capillary refill and edema Left lower extremity: full ROM, normal capillary refill and edema Psych Mental Status: mental status grossly normal Assessment & Plan Assessment & Plan (1) Varicose veins of right lower extremity with inflammation: Code(s): I83.11 - Varicose veins of right lower extremity with inflammation Plan: In short, the patient has evidence of venous insufficiency. I have discussed the pathophysiology with the patient. In addition I have provided informational material regarding venous disease to the patient. We have discussed conservative measures including compression, elevation, and exercise. I have also provided a handout regarding appropriate use of compression stockings and where to purchase good compression stockings as well. I have taken the liberty of ordering venous insufficiency testing with the patient. They will follow up with me after testing. The patient had an opportunity to ask questions regarding the treatment plan. All questions were answered. Imaging studies, laboratory studies and physical exam results were discussed and reviewed in detail. No major barriers to understanding were identified. The patient expressed understanding and agreement with the above treatment plan. The patient is aware they should contact our office by phone for worsening of the current condition or the appearance of new symptoms. Thank you for allowing me to participate in the vascular care of this patient. If you have any questions or concerns regarding the treatment for the above condition please do not hesitate to contact me. The office telephone contact is [phone]. This note is constructed using voice recognition software. While every effort has been made to ensure accuracy, weather reporter errors may have been included. Thank you for allowing me to participate in the care of your patient. Yours sincerely, Chun Fernandez MD, FACS, R.P.V.I. Orders: Orders US venous insuf bilat 1 Week I83.11 - Varicose veins of right lower extremity with inflammation Coding Level of Care Code New Pt Level 4 (98779) Diagnoses Varicose veins of right lower extremity with inflammation I83.11
== END 2023-10-26 14:23 | disposition home or self-care (01) ==
PROVIDERS: PCP Nurse Practitioner Primary Care; Visit Provider Surgery Vascular Surgery
DX: I83.11 Varicose veins of right lower extremity with inflammation (principal)
CPT/HCPCS: 99203

== ENCOUNTER → 2023-10-26 13:27 | Outpatient (BNVA) | payer OTHER, SELFPAY | PROVIDERS: PCP Nurse Practitioner Primary Care; Visit Provider Surgery Vascular Surgery ==

== ENCOUNTER 2023-11-23 12:58 | Outpatient (REF) | payer OTHER, SELFPAY ==
--- NOTE | ~2023-11-23 | US_ITS ---
EXAMINATION: US LOWER EXTREMITY VENOUS (REFLUX EXAM), BILATERAL CLINICAL INFORMATION: Chronic venous insufficiency with lower extremity varicose veins, inflammation COMPARISON: None. TECHNIQUE: Color flow triplex imaging and compression Doppler was performed to evaluate both the deep and the superficial systems bilaterally. To evaluate the superficial system, the examination was performed in the upright position. Color-flow Doppler ultrasound and compression ultrasound were utilized. In addition, maneuvers were utilized to demonstrate reflux. FINDINGS: 1. DEEP VENOUS ULTRASOUND OF THE RIGHT LOWER EXTREMITY: Common Femoral Vein: Compressible, normal respiratory variation and augmented flow. Femoral Vein: Compressible, normal color flow and augmentation. Popliteal Vein: Compressible, normal augmentation. Deep Reflux: There is no evidence of reflux in the deep system in either the common femoral vein, superficial femoral or the popliteal vein. There is no evidence of a King's cyst. 2. SUPERFICIAL ULTRASOUND WITH DOPPLER OF RIGHT LOWER EXTREMITY: GREAT SAPHENOUS VEIN: Saphenofemoral Junction: 0.8 cm; Reflux: 0 ms Proximal Thigh: 0.4 cm; Reflux: 0 ms Mid Thigh: 0.2 cm; Reflux: 0 ms Distal Thigh: 0.2 cm; Reflux: 1464 ms At Knee: 0.2 cm; Reflux: 0 ms Proximal Calf: 0.2 cm; Reflux: 0 ms Mid Calf: 0.1 cm; Reflux: 0 ms Distal Calf: 0.2 cm; Reflux: 0 ms DUPLICATED MEDIAL GREAT SAPHENOUS VEIN: Diameter: None imaged Reflux: NA DUPLICATED LATERAL GREAT SAPHENOUS VEIN: Diameter: 0.5 cm Reflux: None SMALL SAPHENOUS VEIN: Saphenopopliteal Junction: 0.4 cm; Reflux: 0 ms Distal: 0.3 cm; Reflux: 0 ms VEIN OF GIACOMINI: Size: NA Reflux: NA PERFORATORS: Location: None imaged Size: NA Reflux: NA VARICOSITIES: Location: None imaged. Size: NA Reflux: NA 3. DEEP VENOUS ULTRASOUND OF THE LEFT LOWER EXTREMITY: Common Femoral Vein: Compressible, normal respiratory variation and augmented flow. Femoral Vein: Compressible, normal color flow and augmentation. Popliteal Vein: Compressible, normal augmentation. Deep Reflux: There is no evidence of reflux in the deep system in either the common femoral vein, superficial femoral or the popliteal vein. There is no evidence of a King's cyst. 4. SUPERFICIAL ULTRASOUND WITH DOPPLER OF LEFT LOWER EXTREMITY: GREAT SAPHENOUS VEIN: Saphenofemoral Junction: 0.9 cm; Reflux: 0 ms Proximal Thigh: 0.4 cm; Reflux: 0 ms Mid Thigh: 0.2 cm; Reflux: 1324 ms Distal Thigh: 0.2 cm; Reflux: 0 ms At Knee: 0.2 cm; Reflux: 0 ms Proximal Calf: 0.2 cm; Reflux: 0 ms Mid Calf: 0.2 cm; Reflux: 0 ms Distal Calf: 0.1 cm; Reflux: 0 ms DUPLICATED MEDIAL GREAT SAPHENOUS VEIN: Diameter: None imaged Reflux: NA DUPLICATED LATERAL GREAT SAPHENOUS VEIN: Diameter: 0.4 cm Reflux: None SMALL SAPHENOUS VEIN: Saphenopopliteal Junction: Not visualized Proximal: Not visualized Distal: Not visualized VEIN OF GIACOMINI: Size: NA Reflux: NA PERFORATORS: Location: None significant Size: NA Reflux: NA VARICOSITIES: Location: None significant Size: NA Reflux: NA US/US venous insuf bilat IMPRESSION: Right: Segmental area of reflux in the right great saphenous vein in the distal thigh as described above. Left: Segmental areas of reflux in the left great saphenous vein in the mid thigh as described above. Left small saphenous vein is not visualized.
== END 2023-11-23 12:59 | disposition home or self-care (01) ==
LOC: HO.US 12:58
PROVIDERS: PCP Nurse Practitioner Primary Care; Visit Provider Surgery Vascular Surgery
DX: I83.11 Varicose veins of right lower extremity with inflammation (principal)
CPT/HCPCS: 93970

== ENCOUNTER 2024-01-30 11:15 | Outpatient (AMB) | payer OTHER, SELFPAY ==
--- NOTE | 2024-01-30 11:23 | A.OFFVIS_ITS ---
Intake Visit Reasons: f/u s/p U/S 11/22 Intake Note: Patient presents for US follow up. Patient states both of her legs hurt but the right leg is worse. No swelling or cramping. She states when she gets out of her car her legs hurt. Accompanied by: Self / Same As Patient Allergies No Known Allergies Allergy (Verified 01/30/24 11:25) HPI HPI f/u s/p U/S 11/22: Details: Very pleasant 58-year-old female presents for follow-up status post venous insufficiency testing. She does have some left posterior knee varicosities that have been a source of pain and discomfort for her. She has used compression with minimal relief. She now presents for follow-up with venous insufficiency testing [facility] Medical History No active medical problems Surgical History History of section Hx of cholecystectomy Family History Mother Heart problem Father Stroke Social History Alcohol intake: never Patient Tobacco Use Status: Former Tobacco user Review of Systems Const Reports as per HPI ENT Reports no additional complaints Card Denies chest pain, Denies chest pain at rest and Denies chest pain with activity Resp Denies chest congestion and Denies cough GI Reports no additional complaints Musc Details: pain over varicosities, aching of lower extremities, swelling, cramping, heaviness and tiredness, itching Denies abnormal gait Skin/Breast Reports pruritus and Denies wounds Neuro Reports no additional complaints and Denies abnormal gait Psych Denies no additional complaints Physical Exam Const General: cooperative, healthy appearing and comfortable Orientation/consciousness: oriented to person, oriented to place and oriented to time Neck Carotids: no bruits Chest Chest palpation & inspection: normal inspection of the chest and normal palpation of entire chest wall Resp Effort & Inspection: normal respiratory effort and able to speak in complete sentences Cardio Rate: regular rate Heart sounds: S1 normal heart sound present and S2 normal heart sound present Peripheral pulses: Peripheral pulses 2+ throughout GI Inspection: Yes normal to inspection Skin Other: +2 edema, large rope-like varicosities greater than 4 mm left posterior calf CEAP Classification C4 - skin color changes Ep - Etiology Primary As - superficial veins P - reflux General skin exam: dry skin Neuro General: oriented to person, oriented to place and oriented to time Extrem Right lower extremity: full ROM, normal capillary refill and edema Left lower extremity: full ROM, normal capillary refill and edema Psych Mental Status: mental status grossly normal Results Reviewed Results Reviewed: Brief summary of venous insufficiency testing is as follows: right great saphenous vein: negative right small saphenous vein: negative right accessory vein: none present left great saphenous vein: negative left small saphenous vein: negative left accessory vein: none present Please note there is no evidence of any venous aneurysms or significant tortuosity Assessment & Plan Assessment & Plan (1) Varicose veins of left lower extremity with inflammation: Code(s): I83.12 - Varicose veins of left lower extremity with inflammation Category: Medical Plan: This patient has varicose veins with inflammation. They continue to be a source of discomfort for the patient. The patient has tried conservative treatment with compression, leg elevation and exercise program for over 3 months time. They have been compliant with all treatment. This has provided minimal relief for the patient. I do not anticipate this course of treatment will alter the underlying etiology. The patient has been scheduled for lower extremity venous treatment inclusive of --- left lower extremity microphlebectomy. Risks, benefits, and complications of this procedure has been discussed in d etail with the patient including but not limited to bleeding, infection, and the development of a DVT. The patient has demonstrated a clear understanding and has consented. We will schedule the patient as soon as possible. Thank you for allowing us to participate in this patient's care. If there are any questions or concerns please do not hesitate to contact us. Coding Level of Care Code Est Pt Level 4 (96578) Diagnoses Varicose veins of left lower extremity with inflammation I83.12
== END 2024-01-30 11:49 | disposition home or self-care (01) ==
PROVIDERS: PCP Nurse Practitioner Primary Care; Visit Provider Surgery Vascular Surgery
DX: I83.12 Varicose veins of left lower extremity with inflammation (principal)
CPT/HCPCS: 99214

== ENCOUNTER → 2024-01-30 11:15 | Outpatient (BNVA) | payer OTHER, SELFPAY | PROVIDERS: PCP Nurse Practitioner Primary Care; Visit Provider Surgery Vascular Surgery ==

== ENCOUNTER 2024-06-11 07:19 | Outpatient (REF) | payer OTHER, SELFPAY ==
[2024-06-11 08:03] LABS: Estimated Average Glucose 117 mg/dL; Hemoglobin A1c % 5.7 % (<6.0); Total Hemoglobin (HGBA1C) 3380.6787 umol/L
[2024-06-11 08:27] LABS: Cholesterol 217 mg/dL (<200); HDL Cholesterol 45 mg/dL (>40); LDL Cholesterol Calculated 106 mg/dL (<100); Triglycerides 332 mg/dL (<150)
[2024-06-11 08:46] LABS: TSH reflex Free T4 3.54 uIU/mL (0.32-4.0)
== END 2024-06-11 07:20 | disposition home or self-care (01) ==
LOC: HO.LAB 07:19
PROVIDERS: PCP Nurse Practitioner Primary Care; Visit Provider Nurse Practitioner Primary Care
DX: H02.72 Madarosis of eyelid and periocular area (principal); R73.03 Prediabetes; E78.2 Mixed hyperlipidemia
CPT/HCPCS: 36415; 80061; 83036; 84443

== ENCOUNTER 2024-06-21 10:21 | Outpatient (AMB) | payer OTHER, SELFPAY ==
[2024-06-21 10:32] VITALS: BMI 26.5
--- NOTE | 2024-06-21 10:32 | MHC.OFFVIS ---
Vital Signs 06/21/24 10:32 Height 5 ft 5 in Weight 159 lb BMI 26.5 Intake Visit Reasons: Left Micro Accompanied by: Self / Same As Patient Allergies No Known Allergies Allergy (Verified 06/21/24 10:32) PFSH Medical History No active medical problems Surgical History History of section Hx of cholecystectomy Family History Mother Heart problem Father Stroke Social History Alcohol intake: never Patient Tobacco Use Status: Former Tobacco user Physical Exam Vital Signs: BMI result Body Mass Index 26.5 Office Procedures Vascular Office Procedure Details Details: Diagnosis: Left Leg varicose veins with inflammation Procedure: Left leg Microphlebectomy Anesthesia: Local Infiltration 15 cc, Tumescent: 0 cc. Varicose veins were marked in the standing position on the left leg and the patient was then placed in the prone position. The left lower extremity was prepared and draped to allow knee flexion in the sterile field. The patient had large superficial varicose veins with significant symptoms of pain. It was therefore determined to perform microphlebectomies of the clusters of varicose veins. The patient had bulging varicose veins which were previously marked in the standing position. A small stab incision was made longitudinally directly overlying the varicose vein in the calf and the varicose vein was grasped with a hemostat aided by a vein hook. It was then dissected as far proximally and distally as possible and avulsed. A total of 10 stab incisions were made and the procedure of stab phlebectomies was repeated 10 times. Hemostasis was checked and stab incision sites were closed with steri-strips and sterile dressing was given with gauze and krilex wrap followed by an pedro bandage. There were no complications and blood loss was minimal. Post-Op instructions were given and a follow-up appointment was recommended. [id number] - Phleb Veins, Extrem - up to 20 All charges added?: Procedure code (CPT) selection complete Assessment & Plan Assessment & Plan (1) Varicose veins of left lower extremity with inflammation: Comment: 06/21/2024 - left leg microphlebectomy Code(s): I83.12 - Varicose veins of left lower extremity with inflammation Category: Medical Plan: See op note Coding Level of Care Code Est Pt Level 4 (42782) Diagnoses Varicose veins of left lower extremity with inflammation I83.12 CPT Codes Details - Vascular 5: 57826 - Phleb Veins, Extrem - up to 20 ([id number])
== END 2024-06-21 11:24 | disposition home or self-care (01) ==
PROVIDERS: PCP Nurse Practitioner Primary Care; Visit Provider Surgery Vascular Surgery
DX: I83.12 Varicose veins of left lower extremity with inflammation (principal)
CPT/HCPCS: 37765

== ENCOUNTER → 2024-06-21 10:21 | Outpatient (BNVA) | payer OTHER, SELFPAY | PROVIDERS: PCP Nurse Practitioner Primary Care; Visit Provider Surgery Vascular Surgery | DX: I83.12 Varicose veins of left lower extremity with inflammation (principal) | CPT/HCPCS: 37765 ==

== ENCOUNTER 2024-07-09 09:58 | Outpatient (AMB) | payer OTHER, SELFPAY ==
--- NOTE | 2024-07-09 10:07 | A.OFFVIS_ITS ---
Vital Signs 07/09/24 10:12 Height 5 ft 5 in Weight 159 lb BMI 26.5 BP 112/72 Blood Pressure Location Rt brachial Position Sitting Intake Visit Reasons: 2w follow up s/p LEFT Micro 06/21/24 Intake Note: Roxann is a 58 year old female who presents to the office today for a 2 week follow up s/p Left leg Micro 06/21/24. Pt states she is overall feeling well and denies any pain or inflamation. Pt states she is doing well after the procedure. Diesel Powerplant Supervisor Required: Yes Diesel Powerplant Supervisor Language: Bonding Machine Operator Services: Diesel Powerplant Supervisor Present Diesel Powerplant Supervisor Name: Raj ([id number]) Allergies No Known Allergies Allergy (Verified 07/09/24 10:07) HPI HPI 2w follow up s/p LEFT Micro 06/21/24: Details: Very pleasant 58-year-old patient presents for follow-up status post left leg microphlebectomy. 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 She appears to be doing significantly better. She now presents for routine follow-up. [facility] Medical History No active medical problems Surgical History History of section Hx of cholecystectomy Family History Mother Heart problem Father Stroke Social History Alcohol intake: never Patient Tobacco Use Status: Former Tobacco user Review of Systems Const All systems reviewed & are unremarkable except as noted in HPI and below Reports no additional complaints ENT Reports Normal hearing present Card Denies chest pain, Denies chest pain at rest, Denies chest pain with activity and Denies pedal edema Resp Denies cough GI Denies abdominal pain Musc Denies abnormal gait, Denies muscle cramps and Denies radiating pain into limb Skin/Breast Denies skin ulcer and Denies wounds Neuro Reports Normal hearing present and Denies abnormal gait Psych Reports no additional complaints Physical Exam Vital Signs: Last Vital Signs BP 112/72 07/09/24 10:12 BMI result Body Mass Index 26.5 Const General: cooperative, healthy appearing and comfortable Orientation/consciousness: oriented to person, oriented to place and oriented to time HEENT Head: Yes normal to inspection Neck Neck: Yes normal visual inspection Carotids: no bruits Chest Chest palpation & inspection: normal inspection of the chest Resp Effort & Inspection: normal respiratory effort and able to speak in complete sentences Auscultation: clear to auscultation bilaterally, no crackles, no rales, no rhonchi and no wheezes Cardio Rate: regular rate Rhythm: regular rhythm Heart sounds: S1 normal heart sound present and S2 normal heart sound present Bruits: no carotid bruits Peripheral pulses: Peripheral pulses 2+ throughout GI Inspection: Yes normal to inspection Skin Wounds: no wounds Hair: normal Neuro General: oriented to person, oriented to place and oriented to time Cranial nerves: Yes CN's II-XII intact bilaterally and Yes Normal hearing prese nt Cognition (Neuro): normal cognition Motor exam (neuro): 5/5 motor strength present throughout Extrem Other: venous exam: No significant superficial varicosities or spider telangiectasias, minimal edema General: No clubbing, No cyanosis and No edema Psych Appearance: grossly normal Mental Status: mental status grossly normal Speech and movement: Normal speech and movement present Assessment & Plan Assessment & Plan (1) Varicose veins of left lower extremity with inflammation: Comment: 06/21/2024 - left leg microphlebectomy Code(s): I83.12 - Varicose veins of left lower extremity with inflammation Category: Medical Plan: The patient has done extremely well with all venous treatments. Patient's may often experience postprocedure phlebitic episodes and I have discussed with the patient use of warm compresses and NSAIDS if tolerated for pain discomfort. In addition, I have discussed continued conservative measures including use of compression, leg elevation, and exercise. The patient was also given an information sheet regarding appropriate use of compression stockings and future purchases. Thank you for allowing us to care for your patient with venous disease. Coding Level of Care Code Est Pt Level 3 (88799) Diagnoses Varicose veins of left lower extremity with inflammation I83.12
[2024-07-09 10:12] VITALS: BP 112/72; BMI 26.5
== END 2024-07-09 10:44 | disposition home or self-care (01) ==
PROVIDERS: PCP Nurse Practitioner Primary Care; Visit Provider Surgery Vascular Surgery
DX: I83.12 Varicose veins of left lower extremity with inflammation (principal)
CPT/HCPCS: 99213

== ENCOUNTER 2024-07-19 13:24 | Outpatient (REF) | payer OTHER, SELFPAY ==
--- NOTE | ~2024-07-19 | MM_ITS ---
EXAMINATION: BONE DENSITOMETRY CLINICAL INDICATION: Other specified disorders of bone density and structure. COMPARISON: Baseline BD dated 12/29/2021. TECHNIQUE: Using a [employer] DXA System (software version: 13.1) manufactured by [employer], dual-energy x-ray absorptiometry was performed of the lumbar spine and left hip. The images are of good technical quality. Summary results are attached. FINDINGS: LEFT FEMUR, NECK: Current: BMD 0.863 g/cm2, Z-score -0.4, T-score -1.3, osteopenia. Baseline: BMD 0.856 g/cm2. LEFT FEMUR, TOTAL: Current: BMD 0.965 g/cm2, Z-score 0.2, T-score -0.3, normal, 3.0% increase from baseline (<5% change is not significant). Baseline: BMD 0.937 g/cm2. AP SPINE L1-L4: Current: BMD 1.074 g/cm2, Z-score -0.3, T-score -0.9, normal, 2.7% increase from baseline (<5% change is not significant). Baseline: BMD 1.046 g/cm2. IDENTIFIED RISK FACTORS: Early menopause, secondary osteoporosis, history of fracture (adult). HISTORY OF FRACTURE: Spine. MEDICATIONS: Multivitamin. MM/XR DEXA axial skeleton IMPRESSION: 1. DIAGNOSIS: Osteopenia based on the lowest T-score value of -1.3 in the femoral neck applying World Health Organization criteria. 2. 10-YEAR FRACTURE RISK PREDICTION, FRAX: Major osteoporotic fracture (clinical spine, forearm, hip or shoulder) 6.6%. Hip fracture 0.5%. 3. Treatment Recommendations: NOF guidelines recommend consideration for treatment in postmenopausal women and men age 50 and older presenting with the following: -A hip or vertebral (clinical or morphometric) fracture. -T-score less than or equal to -2.5 at the femoral neck or spine after appropriate evaluation to exclude secondary causes. -Low bone mass at the hip or spine and a 10-year fracture probability by FRAX of greater than or equal to 3% for hip fracture or greater than or equal to 20% for major osteoporotic fracture based on the [place] adapted WHO algorithm. 4. Other Recommendations: All treatment decisions require clinical judgment and consideration of individual patient factors, including patient preferences, comorbidities, previous drug use, risk factors not captured in the FRAX model (e.g. frailty, falls, vitamin D deficiency, increased bone turnover, interval significant decline in bone density) and possible under or overestimation of fracture risk by FRAX. Additional medical evaluation for secondary cause of low bone mineral density may be appropriate. FUTURE SCAN RECOMMENDATION: People with diagnosed cases of osteoporosis or at high risk for fracture should have regular bone mineral density tests. For patients eligible for Medicare, routine testing is allowed once every 2 years. The testing frequency can be increased to one year for patients who have rapidly progressing disease, those who are receiving or discontinuing medical therapy to restore bone mass, or have additional risk factors. Electronically signed by: Jesika Otto MD 07/22/2024 09:03 AM ARLEEN DUNAWAY
== END 2024-07-19 13:25 | disposition home or self-care (01) ==
LOC: HO.MAMMO 13:24
PROVIDERS: PCP Nurse Practitioner Primary Care; Visit Provider Nurse Practitioner Primary Care
DX: M85.852 Other specified disorders of bone density and structure, left thigh (principal)
CPT/HCPCS: 77080

== ENCOUNTER 2025-05-01 07:35 | Outpatient (REF) | payer OTHER, SELFPAY ==
--- OUTSIDE RECORDS SUMMARY | 2025-05-01 07:37 | XMS_ITS | Encounter Summary ---
Author Organization [employer] Address [address] [place] [address] Care Team Providers Care Lode Miner Name Role Phone Larisa Smith Primary Care Provider [phone] Reason for Visit * Reason Onset Date Comments Results 06/28/2024 Encounter Details Date Type Department Care Team ([facility] st Contact Info) Description 06/28/2024 Telephone [facility] [address] [place], [place] [phone] Larisa Smith ANP [address] [place], [place] [phone] Results Social History Tobacco Use Types Packs/Day Years Used Date Smoking Tobacco: Former Cigarettes Smokeless Tobacco: Never Alcohol Use Standard Drinks/Week Comments Not Currently 0 (1 standard drink = 0.6 oz pur e alcohol) Depression Answer Date Recorded Patient Health Questionnaire-9 Score 1 09/21/2023 Patient Health Questionnaire-9 Score 1 09/21/2023 Last PHQ-9: Questionnaire Data Not on file 0 09/21/2023 Housing Stability Answer Date Recorded What is your housing situation today? I have alize braswell 05/30/[address] you li ve. Do you have problems with any of the following? None of the above 05/30/2024 Food Insecurity Answer Date Recorded Within the past 12 months, y ou worried that your food would run out before you got money to buy more: Never True 05/30/2024 Within the past 12 months,th e food you bought just didn't last and you didn't have enough money to get more: Never True 10/2023 Transportation Answer Date Recorded In the past 12 months, has l ack of transportation kept you from medical appts, meetings, work or from getting things needed for daily living? No 05/30/2024 Utilities Answer Date Recorded In the past 12 months, has t he electric, gas, oil or water company threatened to shut off services in your home? I am not sure 05/30/2024 Depression Answer Date Recorded Patient Health Questionnaire-2 Score 1 09/21/2023 Internet Access Answer Date Recorded Internet Access Q1 Yes 05/30/2024 Internet Access Q2 Not on file 05/30/2024 Comments Unknown Sex and Gender Information Value Date Recorded Sex Assigned at Female 06/27/2022 10:34 AM EDT Legal Sex Female 10:34 AM EDT Gender Identity Female 06/27/2022 10:34 AM EDT Sexual Orientation Straight 06/27/2022 10 :34 AM EDT documented as of this encounter Miscellaneous Notes * Telephone Encounter - Katy Salazar RN - 06/28/2024 2:14 PM EDT TC placed to pt to notify of 06/11/24 lab results. Pt informed of PCP message informing that triglycerides are a little more elevated than in the past. Pt encouraged to watch her diet and start on lifestyle changes including limiting sugary and greasy foods along with exercise. Pt agreeable to all this but inquired if f/u blood work for appt will be necessary based on these results. Pt informed that PCP will be notified and if any changes are made pt will be informed. * Telephone Encounter - Garry Bowers - 06/28/2024 1:05 PM EDT TC from pt requesting call back regarding Results. Type of results: Labs Date when done: 06/11/24 Facility: [facility] Labs documented in this encounter Plan of Treatment Not on file documented as of this encounter Visit Diagnoses Not on filedocumented in this encounter Additional Health Concerns Assessment Noted Time PHQ-9 Depression Total Score: 1 09/21/19 24 9:52 AM EST documented as of this encounter Care Teams Lode Miner Relationship Specialty Start Date End Date Larisa Smith ANP [address] [place] [address] PCP - General Family Medicine 07/19/22 documented as of this encounter
--- OUTSIDE RECORDS SUMMARY | 2025-05-01 07:37 | XMS_ITS | Encounter Summary ---
Author Organization [employer] Address [address] [place] [address] Care Team Providers Care Broodmare Barn Groom Name Role Phone Larisa Smith Primary Care Provider [phone] Encounter Details Date Type Department Care Team (Late st Contact Info) Description 12/07/2022 Orders Only [facility] [address] [place], [place] [phone] Toro Diaz MD [address] [place] [address] Paresthesias (Primary Dx) Social History Tobacco Use Types Packs/Day Years Used Date Smoking Tobacco: Never Assessed Comments Unknown Sex and Gender Information Value Date Recorded Sex Assigned at Female 06/27/2022 10:34 AM EDT Legal Sex Female 10:34 AM EDT Gender Identity Female 06/27/2022 10:34 AM EDT Sexual Orientation Straight 06/27/2022 10 :34 AM EDT documented as of this encounter Plan of Treatment Not on file documented as of this encounter Visit Diagnoses Diagnosis Paresthesias- Primary Disturbance of skin sensation documented in this encounter Care Teams Broodmare Barn Groom Relationship Specialty Start Date End Date Larisa Smith ANP [address] [place] [address] PCP - General Family Medicine 07/19/22 documented as of this encounter
--- OUTSIDE RECORDS SUMMARY | 2025-05-01 07:37 | XMS_ITS | Encounter Summary ---
Author Organization [employer] Address [address] [facility] [address] [place] [address] Care Team Providers Care Bead Wire Insulator Name Role Phone Larisa Smith Primary Care Provider [phone] Reason for Visit * Reason Onset Date Comments Nurse Triage 04/16/2024 Encounter Details Date Type Department Care Team ([facility] st Contact Info) Description 04/16/2024 Telephone [facility] MED[facility]INE [address] [place], [place] [phone] Larisa Smith ANP [address] [place], [place] [phone] Nurse Triage Social History Tobacco Use Types Packs/Day Years [...] housing situation today? I have alize braswell 06/15/[address] you li ve. Do you have problems with any of the following? None of the above 06/15/2023 Food Insecurity Answer Date Recorded Within the past 12 months, y ou worried that your food would run out before you got money to buy more: Never True 06/15/2023 Within the past 12 months,th e food you bought just didn't last and you didn't have enough money to get more: Never True Transportation Answer Date Recorded In the past 12 months, has l ack of transportation kept you from medical appts, meetings, work or from getting things needed for daily living? No 06/15/2023 Utilities Answer Date Recorded In the past 12 months, has t he electric, gas, oil or water company threatened to shut off services in your home? Yes 06/04/2023 Depression Answer Date Recorded Patient Health Questionnaire-2 Score 1 09/21/2023 Comments Unknown Sex and Gender Information Value Date Recorded Sex Assigned at Female 06/27/2022 10:34 AM EDT Legal Sex Female 10:34 AM EDT Gender Identity Female 06/27/2022 10:34 AM EDT Sexual Orientation Straight 06/27/2022 10 :34 AM EDT documented as of this encounter Miscellaneous Notes * Telephone Encounter - Kathie Brown RN - 04/16/2024 10:30 AM EDT Triage call with [employer] [place] [id number] Pt reports eyelashes fall out, grow back and fall out again. Pt reports white areas where there aregaps and no eye lashes are itchy at times. Pt denies redness, bumps, discharge. Pt has stopped using eye makeup for a month now without change. Pt requests to have provider see Pt. Pt is offered 330pm apt with PCP next week and declines because Pt gets out of work at 4pm. Pt is offered WIC which isopen till 8pm and declines because, everytime I go they say I need an appointment . Pt requests apt with PCP at 345pm no available time slots for this in next 2 weeks. Pt ends triage. Protocol Used: No Protocol Available (Adult) Protocol-Based Disposition: See in Office or Video Visit within 2 Weeks Video visit not offered Positive Triage Question: * Nursing judgment * All higher-acuity triage questions were negative Care Advice Discussed: * Reasons To Call Back - New symptoms develop - You become worse * Telephone Encounter - Madhav White - 04/16/2024 9:55 AM EDT Tc from pt stating she is symptoms of hair loss in her eyelashes. documented in this encounter Plan of Treatment Not on file documented as of this encounter Visit Diagnoses Not on filedocumented in this encounter Additional Health Concerns Assessment Noted Time PHQ-9 Depression Total Score: 1 09/21/19 9:52 AM EST documented as of this encounter Care Teams Bead Wire Insulator Relationship Specialty Start Date End Date Larisa Smith ANP [address] [place] [address] PCP - General Family Medicine 07/19/22 documented as of this encounter
--- OUTSIDE RECORDS SUMMARY | 2025-05-01 07:37 | XMS_ITS | Encounter Summary ---
Author Organization [employer] Address [address] [facility] [address] [place] [address] Care Team Providers Care Cylinder Die Machine Operator Name Role Phone Larisa Smith Primary Care Provider [phone] Reason for Visit * Reason Onset Date Comments Referral 04/25/2025 Encounter Details Date Type Department Care Team (Late st Contact Info) Description 04/25/2025 Refill [facility] MEDICINE [address] [place], [place] [phone] Larisa Smith ANP [address] [place], [place] [phone] Osteopenia of neck of femur, unspecified laterality; Right elbow pain Social History Tobacco Use Types Packs/Day Years Used Date Smoking Tobacco: Former Cigarettes Smokeless Tobacco: Never Alcohol Use Standard Drinks/Week Comments Not Currently 0 (1 standard drink = 0.6 oz pur e alcohol) Depression Answer Date Recorded Patient Health Questionnaire-9 Score 2 03/24/2025 Patient Health Questionnaire-9 Score 2 03/24/2025 Last PHQ-9: Questionnaire Data Not on file 0 03/24/2025 Housing Stability Answer Date Recorded What is [...] to shut off services in your home? No 09/23/2024 Depression Answer Date Recorded Patient Health Questionnaire-2 Score 1 03/24/2025 Internet Access Answer Date Recorded Internet Access Q1 Yes 05/30/2024 Internet Access Q2 Not on file 05/30/2024 Comments No Sex and Gender Information Value Date Recorded Sex Assigned at Female 06/27/2022 10:34 AM EDT Legal Sex Female 10:34 AM EDT Gender Identity Female 06/27/2022 10:34 AM EDT Sexual Orientation Straight 06/27/2022 10 :34 AM EDT documented as of this encounter Miscellaneous Notes * Telephone Encounter - Cristal Ramirez RN - 04/25/2025 10:17 AM EDT Telephone call returned to patient in regards to below message. Patient stated she has a small painon her left side that is slightly bulging and she think she forgot to mention it at her visit. Patient advised to come into [facility], to be seen or to ED. Patient stated she may come tomorrow but it is something he has had for a while. Patient also requesting med refill. Patient verbalized understandingand denied having any further questions or concerns at this time. Patient to follow up as needed. * Telephone Encounter - Boyd Dacosta - 04/25/2025 10:11 AM EDT Tc from pt requesting a referral to a garment supervisor Contact pt at [phone] (mongolian) documented in this encounter Plan of Treatment Not on file documented as of this encounter Visit Diagnoses Diagnosis Osteopenia of neck of femur, unspecified laterality Right elbow pain Pain in joint, upper arm documented in this encounter Additional Health Concerns Assessment Noted Time PHQ-9 Depression Total Score: 2 03/24/20 25 2:26 PM EDT documented as of this encounter Care Teams Cylinder Die Machine Operator Relationship Specialty Start Date End Date Larisa Smith ANP [address] [place] [address] PCP - General Family Medicine 07/19/22 documented as of this encounter
--- OUTSIDE RECORDS SUMMARY | 2025-05-01 07:37 | XMS_ITS | Clinical Summary ---
Author Organization [employer] Address [address] [place] [address] [address] [place] [address] Care Team Providers Care Seamless Tube Drawer Name Role Phone Luis Jose RILEY Primary Care Provider [phone] Allergies No known active allergies Medications Calcium Carb-Cholecalci ferol 600-10 MG-MCG tabletIndicatio ns:Osteopenia of neck of femur, unspecified laterality Take 1 tablet by mouth 2 times daily. 180 tablet 2 04/29/20 25 Active loratadine (Claritin) 10 MG tablet Take 1 tablet (10 mg) by mouth Once per day. 30 tablet 11 04/29/20 25 026 Active ibuprofen 600 MG tabletIndicatio ns:Right elbow pain Take 1 tab every 8 hours with food for 1 week, then as needed for pain up to TID 60 tablet 04/29/20 25 Active Calcium Carb-Cholecalci ferol 600-10 MG-MCG tabletIndicatio ns:Osteopenia of neck of femur, unspecified laterality Take 1 tablet by mouth 2 times daily. 180 tablet 2 01/14/20 23 025 Discontinued(Re order (will not trigger notification to Pharmacy)) loratadine (Claritin) 10 MG tablet Take 1 tablet (10 mg) by mouth in the morning. 30 tablet 11 12/13/19 24 025 Discontinued(Re order (will not trigger notification to Pharmacy)) ibuprofen 600 MG tabletIndicatio ns:Right elbow pain Take 1 tab every 8 hours with food for 1 week, then as needed for pain up to TID 60 tablet 03/24/20 25 025 Discontinued(Re order (will not trigger notification to Pharmacy)) Active Problems Problem Noted Date Diagnosed Date Osteopenia after menopause 11/26/2024 Protrusion of lumbar intervertebral disc 023 Chronic constipation 06/05/2018 Chronic neck pain 06/05/2018 Rash 06/05/2018 Encounters Date Type Department Care Team Description 04/25/2025 Refill [facility] MEDICINE [address] [place] [phone] Jose Fernandez ANP Osteopenia of neck of femur, unspecified laterality; Right elbow pain 03/24/2025 1:30 PM EDT Office Visit [facility] MEDICINE [address] [place] [phone] Jose Fernandez ANP Healthcare maintenance (Primary Dx); Screening mammogram for breast cancer; Osteopenia after menopause; Hypertriglyceridemia ; Need for hepatitis B screening test; Need for hepatitis C screening test; Former cigarette smoker; Rash; Right elbow pain 03/24/2025 Travel 03/21/[address] [address] Jose Fernandez ANP Chart Prep 03/17/2025 Patient Outreach [address] [address] Jose Fernandez ANP Pre-visit Planning ([facility] screening was completed on 09/23/2024) from Last 3 Months Immunizations Immunization Administration Dates Next Due Influenza injectable quadriv alent IIV4 with preservative 06/05/2018 Influenza injectable quadrivalent preservative f ree 07/16/2019 Pfizer Covid-19 Vaccine 12+ 05/25/2021, Tdap 03/24/2023 Social History Tobacco Use Types Packs/Day Years Used Date Smoking Tobacco: Former Cigarettes Smokeless Tobacco: Never Tobacco Cessation:Counseling Given: Not Answered Alcohol Use Standard Drinks/Week Comments Not Currently [...] Orientation Straight 06/27/2022 10 :34 AM EDT Last Filed Vital Signs Vital Sign Reading Time Taken Comments Blood Pressure 110/80 03/24/2025 1:53 PM EDT Pulse 81 03/24/2025 1:53 PM EDT Temperature 36.7 C (98.1 F) 03/24/2025 1:53 PM EDT Respiratory Rate 20 03/24/2025 1:53 PM EDT Oxygen Saturation 98% 03/24/2025 1:53 PM EDT Inhaled Oxygen Concentration - - Weight 76.2 kg (168 lb) 03/24/2025 1:53 PM EDT Height 160 cm (5' 3 ) 03/24/2025 1:53 PM EDT Body Mass Index 29.76 03/24/2025 1:53 PM EDT Plan of Treatment Health Maintenance Due Date Last Done Comments CT Colonography 1966 FIT DNA/Cologuard 1966 FIT 1966 FOBT 1966 Sigmoidoscopy 1966 Hepatitis C Screening 1984 Hepatitis B Vaccines (1 of 3 - 19+ 3-dose series) 1985 Zoster Vaccines (1 of 2) 2016 COVID-19 Vaccine (4 - season) 2025 11/20/2021, 05/25/2021, 05/04/2021 Influenza Vaccine (#1) 2025 07/16/2019, 2017 Diabetes: Hemoglobin A1C 06/11/2025 024, 09/29/2023, 11/30/2022, Additional history exists Pneumococcal Vaccine: 50+ Years (1 of 1 - PCV) 09/09/2025 Postponed from 2016 (Patient Refused) SDOH Screening 09/23/2025 09/23/2024 Mammogram 09/29/2025 09/29/2023, 06/06/2018 Alcohol/Substance Use Screening 03/24/2026 03/24/2025 Depression Screening 03/24/2026 03/24/2025, 03/24/20 25 Disability Screening 03/24/2026 03/24/2025 Tobacco Screening 03/24/2026 03/24/2025 Cervical Cancer Screening 11/24/2026 HPV/Cotest 11/24/2026 11/24/2021, 08/15/2018 Pap Smear 11/24/2026 11/24/2021 Colonoscopy 08/28/2027 Colorectal Cancer Screening 08/28/2027 DTaP/Tdap/Td Vaccines (2 - Td or Tdap) 03/24/2033 03/24/2023 RSV Patients and Patients Aged 60 years or older (1 - 1-dose 75+ series) 2041 HIV Screening Completed 09/29/2023 HIB Vaccines Aged Out No longer eligi ble based on patient's age to complete this topic HPV Vaccines Aged Out No longer eligi ble based on patient's age to complete this topic Hepatitis A Vaccines Aged Out No long er eligible based on patient's age to complete this topic IPV Vaccines Aged Out No longer eligi ble based on patient's age to complete this topic Meningococcal B Vaccine Aged Out No l onger eligible based on patient's age to complete this topic Meningococcal Vaccine Aged Out No yaneli deana eligible based on patient's age to complete this topic RSV under 20 months Aged Out No longe r eligible based on patient's age to complete this topic Rotavirus Vaccines Aged Out No longer eligible based on patient's age to complete this topic Procedures Procedure Name Priority Date/Time Associated Diagnosis Comments HEMOGLOBIN A1C Routine 06/11/2024 7:30 AM EDT Prediabetes BI MAMMOGRAM SCREENING TOMOSYNTHESIS BILATERAL Routine 09/29/2023 1:15 PM EST HIV 1/2 ANTIGEN/ANTIBODY, FOURTH GENERATION W/RFL Routine 09/29/2023 7:37 AM EST Numbness and tingling of both feet THINPREP IMAGING PAP AND HPV MRNA E6/E7, WITH CT/NG, TRICHOMONAS Routine 11/24/2021 11:39 AM EDT from Last 3 Months or Most Recently Relevant to Health Maintenance Results * Hemoglobin A1c (06/11/2024 7:30 AM EDT) Hemoglobin A1c 5.7 <6.0 % [facility] Comment:Hemoglobin A1C Refer ence Range Adults: 4.8 - 6.0 % Non diabetic: < 6.0 % Goal: < 7.0 %Additional Action Suggested: > 8.0 %Note: Hemoglobin A1c results are invalid for patients with abnormal amounts of HbF. Blood transfusions may impact the HbA1c concentration in the patient sample. Estimated Average Glucose 117 mg/dL [facility] Comment:eAG = Estimated ave rage glucose which is %A1C expressed asaverage glucose, using the formula of the X9N-TlisrspZlqtxvy Glucose study (ADAG), Diabetes Care, Vol.31,#8,Mar. 2007 Blood Venous blood specimen / Unknown 06/11/2024 7:30 AM EDT 06/11/2024 7:30 AM EDT us Jose RILEY LAB BLOOD ORDERABLES Final Resul t [facility] [address] [place] [phone] * BI Mammogram Screening Tomosynthesis Bilateral (09/29/2023 1:15 PM EST) Anatomical Region Laterality Modality Breast Bilateral Mammography 09/29/2023 1:15 PM EST Narrative 10/26/2023 9:44 PM EST [address] [place] [address] Mammography Report Signed Patient: Roxann Wylie MR#: [id number] : 1965 Acct:[id number] Age/Sex: 58 / F ADM Date: 09/29/23 Loc: HO.MAMMO Attending Dr: Jose Fernandez NP Ordering Physician: JOSE FERNANDEZ NP Results: 1Negative Date of Service: 09/29/23 Follow Up: 1 Year From Orig inal Mammogram Procedure(s): MM tomosynthesis screening BI Accession Number(s): [id number] cc: JOSE FERNANDEZ NP EXAMINATION: MM SCREENING DIGITAL BREAST TOMOSYNTHESIS, BILATERAL CLINICAL INFORMATION: Screening. Asymptomatic. COMPARISON: Mammography: This study is compared with prior exams dating back to 2018. TECHNIQUE: Digital breast tomosynthesis is performed in both the craniocaudal and mediolateral oblique views along with computer-aided detection (CAD). Synthesized 2D images are generated from the tomosynthesis. FINDINGS: There are scattered areas of fibroglandular density (ACR BI-RADS breast composition Category b). There are no significant masses, abnormal calcifications, or other abnormalities. MM/MM tomosynthesis screening BI IMPRESSION: No mammographic evidence of malignancy. ASSESSMENT: BI-RADS BI-RADS 1 - Negative RECOMMENDATION: Routine annual mammography screening. 1 year F/U This examination should not preclude the clinical evaluation of a suspicious palpable abnormality. This patient's information was entered into a reminder system with a target due date for their next mammogram. Dictated By: Ashly Carlton MD Signed By: <Electronically signed by Ashly Carlton MD in OV> 10/26/23 2141 DD/ 1315 TD/TT: Firer Watertender: Procedure Note Donotuseinterpreter, Image - 10/26/[address] [place] [address] Mammography Report Signed Patient: Roxann Wylie AMR#: [id number] : 1965Acct:[id number] Age/Sex: 58 / FADM Date: 09/29/23 Loc: HO.MAMMO Attending Dr: Jose Fernandez NP Ordering Physician: JOSE FERNANDEZ NPResults: 1Negative Date of Service: 09/29/23Follow Up: 1 Year From Orig inal Mammogram Procedure(s): MM tomosynthesis screening BI Accession Number(s): [id number] cc: JOSE FERNANDEZ NP EXAMINATION: MM SCREENING DIGITAL BREAST TOMOSYNTHESIS, BILATERAL CLINICAL INFORMATION: Screening. Asymptomatic. COMPARISON: Mammography: This study is compared with prior exams dating back to 2018. TECHNIQUE: Digital breast tomosynthesis is performed in both the craniocaudal and mediolateral oblique views along with computer-aided detection (CAD). Synthesized 2D images are generated from the tomosynthesis. FINDINGS: There are scattered areas of fibroglandular density (ACR BI-RADS breast composition Category b). There are no significant masses, abnormal calcifications, or other abnormalities. MM/MM tomosynthesis screening BI IMPRESSION: No mammographic evidence of malignancy. ASSESSMENT: BI-RADS BI-RADS 1 - Negative RECOMMENDATION: Routine annual mammography screening. 1 year F/U This examination should not preclude the clinical evaluation of a suspicious palpable abnormality. This patient's information was entered into a reminder system with a target due date for their next mammogram. Dictated By: Ashly Carlton MD Signed By: <Electronically signed by Ashly Carlton MD in OV> 10/26/23 2141 DD/ 1315 TD/TT: Firer Watertender: Jose Fernandez ANP IMG BI PROCEDURES Final Result * HIV-1/2 Antigen and Antibodies, Fourth Generation, with Reflexes (09/29/2023 7:37 AM EST) HIV AB/AG Nonreactive Nonreactive [facility] Comment:HIV-1 p24 Ag and/or HIV-1/HIV-2 Ab not detected.A test result that is nonreactive does not exclude thepossibility of exposure to or infection with HIV-1 and/orHIV-2. Nonreactive results in this assay for individualswith prior exposure to HIV-1 and/or HIV-2 may be due toantigen and antibody levels that are below the limit ofdetection of this assay.The [employer] HIV Ag/Ab Combo assay result andsupplemental assay results should be interpreted inconjunction with the patient's clinical presentation,history and other laboratory results. If the results areinconsistent with clinical evidence, additional testing issuggested to confirm the result. Blood Venous blood specimen / Unknown 09/29/2023 7:37 AM EST 09/29/2023 7:37 AM EST Jose Fernandez [facility] LAB BLOOD ORDERABLES Final Resul t [facility] [address] [place] [phone] * THINPREP TIS PAP AND HPV mRNA E6/E7, CT/NG, TRICH (11/24/2021 11:39 AM EDT) Chlamydia trachomatis RNA, TMA, Urogenital NOT DETECTED NOT DETECTED [facility] Clinical Information: None given [facility] COMMENT SEE COMMENT [facility] Comment: The analytical performance characteristics of this assay, when used to test SurePath(TM) specimens have been determined by [employer]. The modifications have not been cleared or approved by the FDA. This assay has been validated pursuant to the CLIA regulations and is used for clinical purposes. For additional information, please refer to https://education.Clear[employer]/faq/IUN562 (This link is being provided for information/ educational purposes only.) COMMENT SEE COMMENT [facility] Comment: EXPLANATORY NOTE: The Pap is a screening test for cervical cancer. It is not a diagnostic test and is subject to false negative and false positive results. It is most reliable when a satisfactory sample, regularly obtained, is submitted with relevant clinical findings and history, and when the Pap result is evaluated along with historic and current clinical information. COMMENT: This Pap test has been evaluated with computer assisted technology. [facility] [employer] [facility] Appraisal Manager: SEE COMMENT [facility] Comment: DCR, CT(ASCP) CT screening location: [address] [address] HPV nRNA E6/E7 Not Detected Not Detected [facility] Comment: Methodology: Nursing Manager-Mediated Amplification This assay detects E6/E7 viral messenger RNA (mRNA) from 14 high-risk HPV types (16,18,31,33,35,39,45,51,52,56,58,59,66,68). The analytical performance characteristics of this assay have been determined by [employer]. The modifications have not been cleared or approved by the FDA. This assay has been validated pursuant to the CLIA regulations and is used for clinical purposes. For additional information, please refer to http://[employer]/faq/ELO971r5 (This link if provided for information/ educational purposes only.) Interpretation/Re sult: Negative for intraepithelial lesion or malignancy. [facility] LMP: NONE GIVEN [facility] Neisseria gonorrhoeae RNA, TMA, Urogenital NOT DETECTED NOT DETECTED [facility] Prev. BX: NONE GIVEN [facility] Prev. PAP: NIL / NEG 08/14 [facility] SOURCE: None given [facility] Statement Of Adequacy: SEE COMMENT [facility] Comment: Satisfactory for evaluation. Endocervical/transformation zone component present. Age and/or menstrual status not provided Trichomonas vaginalis, QL, TMA, PAP Vial NOT DETECTED NOT DETECTED [facility] Comment: The analytical performance characteristics of this assay have been determined by [employer]. The modifications have not been cleared or approved by the FDA. This assay has been validated pursuant to the CLIA regulations and is used for clinical purposes. For additional information, please refer to http://education.[employer]/ faq/Trichomonastma (This link is being provided for information/ educational purposes only.) 11/24/2021 11:3 9 AM EDT us Mallory Wills CNM LAB PATHOLOGY ORDERABLES Final Result [facility] [address] from Last 3 Months or Most Recently Relevant to Health Maintenance Insurance * Guarantor: Roxann Wylie Account Type Relation to Patient Date of Phone Billing Address Personal/Family Self [address] Care Teams Seamless Tube Drawer Relationship Specialty Start Date End Date Jose Fernandez ANP [address] [place] [phone] PCP - General Family Medicine 07/19/22
--- OUTSIDE RECORDS SUMMARY | 2025-05-01 07:37 | XMS_ITS | Encounter Summary ---
Author Organization [employer] Address [address] [place] [address] [address], [place] [address] Care Team Providers Care Cobol Developer Name Role Phone Larisa Smith Primary Care Provider [phone] Reason for Visit * Reason Onset Date Comments Appointment Request 10/05/2022 Encounter Details Date Type Department Care Team ([facility] st Contact Info) Description 10/05/2022 Telephone [facility] [address] [place], [place] [phone] Larisa Smith ANP [address] [place], [place] [phone] Appointment Request Social History Tobacco Use Types Packs/Day Years Used Date Smoking Tobacco: Never Assessed Comments Unknown Sex and Gender Information Value Date Recorded Sex Assigned at Female 06/27/2022 10:34 AM EDT Legal Sex Female 10:34 AM EDT Gender Identity Female 06/27/2022 10:34 AM EDT Sexual Orientation Straight 06/27/2022 10 :34 AM EDT COVID-19 Exposure Response Date Recorded In the last 10 days, have yo u been in contact with someone who was confirmed or suspected to have Coronavirus/COVID-19? No / Unsure 10/05/2022 5:34 PM EST documented as of this encounter Miscellaneous Notes * Telephone Encounter - Anita Costa - 10/05/2022 11:00 AM EST Tc from pt requesting an appt . Pt is in need of a tp appt . documented in this encounter Plan of Treatment Not on file documented as of this encounter Visit Diagnoses Not on filedocumented in this encounter Care Teams Cobol Developer Relationship Specialty Start Date End Date Larisa Smith ANP [address] [place] [phone] PCP - General Family Medicine 07/19/22 documented as of this encounter
--- OUTSIDE RECORDS SUMMARY | 2025-05-01 07:38 | XMS_ITS | Encounter Summary ---
Author Organization [employer] Address [address] [facility] [address] [place] [address] Care Team Providers Care Television Presenter Name Role Phone Larisa Smith Primary Care Provider [phone] Reason for Visit * Reason Onset Date Comments Med Refill 07/26/2023 Encounter Details Date Type Department Care Team ([facility] st Contact Info) Description 07/26/2023 Telephone [facility] MEDICINE [address] [place], [place] [phone] Larisa Smith ANP [address] [place], [place] [phone] Med Refill Social History Tobacco Use Types Packs/Day Years Used Date Smoking Tobacco: Former Cigarettes Smokeless Tobacco: Never Alcohol Use Standard Drinks/Week Comments Not Currently 0 (1 standard drink = 0.6 oz pur e alcohol) Housing Stability Answer Date Recorded What is [...] off services in your home? Yes 06/04/2023 Comments Unknown Sex and Gender Information Value Date Recorded Sex Assigned at Female 06/27/2022 10:34 AM EDT Legal Sex Female 10:34 AM EDT Gender Identity Female 06/27/2022 10:34 AM EDT Sexual Orientation Straight 06/27/2022 10 :34 AM EDT documented as of this encounter Miscellaneous Notes * Telephone Encounter - Garry Bowers - 07/26/2023 10:43 AM EST Tc from pt requesting inactive meds. Ibuprofen 400 mg, lidocaine 5% patch, and a muscle relaxer. Any questions please contact at [phone] documented in this encounter Plan of Treatment Not on file documented as of this encounter Visit Diagnoses Not on filedocumented in this encounter Care Teams Television Presenter Relationship Specialty Start Date End Date Lairsa Smith ANP [address] [place] [id number] PCP - General Family Medicine 07/19/22 documented as of this encounter
--- OUTSIDE RECORDS SUMMARY | 2025-05-01 07:38 | XMS_ITS | Encounter Summary ---
Author Organization [employer] Address [address] [facility] [address] [place] [address] Care Team Providers Care Electronic Scanner Operator Name Role Phone Larisa Smith Primary Care Provider [phone] Reason for Visit * Reason Onset Date Comments Letter for School/Work 10/12/2023 Encounter Details Date Type Department Care Team ([facility] st Contact Info) Description 10/12/2023 Telephone [facility] MEDICINE [address] [place], [place] [phone] Larisa Smith ANP [address] [place] [address] Letter for School/Work Social History Tobacco Use Types Packs/Day Years [...] encounter Miscellaneous Notes * Telephone Encounter - Gucci Waterman RN - 10/25/2023 2:37 PM EST Letter updates, T/C to pt. To updates later, pt. Sates she does not need now, advised to give call back to [facility] if any questions or concerns. Pt. Verbally agreed and understood. * Telephone Encounter - Chidi Rojas - 10/12/2023 1:34 PM EST Tc from patient calling to inform the PCP the letter for work was written wrong needs to say able to return to work on the 10/16 not 10/23 documented in this encounter Plan of Treatment Not on file documented as of this encounter Visit Diagnoses Not on filedocumented in this encounter Additional Health Concerns Assessment Noted Time PHQ-9 Depression Total Score: 1 09/21/19 24 9:52 AM EST documented as of this encounter Care Teams Electronic Scanner Operator Relationship Specialty Start Date End Date Larisa Smith ANP [address] [place] [address] PCP - General Family Medicine 07/19/22 documented as of this encounter
[2025-05-01 08:41] LABS: Hemoglobin A1C 142.4562 umol/L; Total Hemoglobin (HGBA1C) 3415.1623 umol/L
[2025-05-01 09:15] LABS: Anion Gap 10 (12-20); Blood Urea Nitrogen 19 mg/dL (9-16); Calcium 9.0 mg/dL (8.4-10.2); Carbon Dioxide 26 mmol/L (22-29); Chloride 108 mmol/L (96-108); Cholesterol 222 mg/dL (<200); Estimated Glomerular Filt Rate > 60; HDL Cholesterol 43 mg/dL (>40); Potassium 4.1 mmol/L (3.3-5.1); Sodium 140 mmol/L (135-145); Triglycerides 242 mg/dL (<150)
[2025-05-01 09:27] LABS: HBS Num1 0.66 mIU/mL (0-7.99); HBc Num1 0.24 S/CO (0.00-0.79); HBsAGNum1 0.40 S/CO (0.00-0.99); Hepatitis B Surface Antigen Negative (Negative); ~HepC Num1 0.12 S/CO (0.00-0.79); ~Hepatitis B Surface Antibody NONREACTIVE (Nonreactive); ~Hepatitis C Antibody Nonreactive (Nonreactive)
== END 2025-05-01 07:36 | disposition home or self-care (01) ==
LOC: HO.LAB 07:35
PROVIDERS: PCP Nurse Practitioner Primary Care; Visit Provider Nurse Practitioner Primary Care
DX: Z00.00 Encounter for general adult medical examination without abnormal findings (principal); Z11.59 Encounter for screening for other viral diseases; M85.80 Other specified disorders of bone density and structure, unspecified site; E78.1 Pure hyperglyceridemia; Z78.0 Asymptomatic menopausal state; Z13.1 Encounter for screening for diabetes mellitus
CPT/HCPCS: 36415; 80048; 80061; 82306; 83036; 86704; 86706; 86803; 87340

== ENCOUNTER 2025-06-20 10:27 | Outpatient (AMB) | payer OTHER, SELFPAY ==
--- NOTE | 2025-06-20 08:09 | A.OFFVIS_ITS ---
Intake Visit Reasons: LDCT Allergies No Known Allergies Allergy (Verified 07/09/24 10:07) HPI HPI LDCT: Details: Initial visit for this 59yo former smoker with a 25PYH. Patient started smoking at age 16 for 38 years at 1/2-1ppd. She quit 5 years ago in 2019 . Denies marijuana use. Denies second hand smoke exposure. Denies exposure to chemicals or substances like asbestos. . Denies known family history of lung cancer. Denies personal history of cancers. Denies chest CT in last year. . Denies recent travel outside the [place]. Denies recent respiratory illness or recent hospitalization for respiratory issues. History testing positive for COVID. Admits receiving COVID Vaccine. . Denies fever, chills, new/worsening cough, hemoptysis, hoarseness or dysphagia. Denies significant chest pain, significant dyspnea or unintentional weight loss. Patient Lung Cancer Screening Questionnaire reviewed with patient by provider. . Shared Decision Making Completed. Patient meets criteria. Discussed in detail with patient, the risk vs benefit of LDCT screening. Patient consents to proceed with scan. Discussed and encouraged continued smoking cessation. [facility] Medical History (Updated 06/20/25 @ 10:42 by Megan Rodriguez PA-C) Microscopic hematuria TOD positive Vitamin D insufficiency Hyperlipidemia Varicose veins of left lower extremity with inflammation Family history of premature coronary artery disease Personal history of nicotine dependence Surgical History (Updated 05/02/25 @ 11:11 by Megan Rodriguez PA-C) Status post phlebectomy History of colonoscopy History of cholecystectomy History of section Family History Mother Heart problem Father Stroke Social History (Updated 06/20/25 @ 10:43 by Megan Rodriguez PA-C) Alcohol intake: never Patient Tobacco Use Status: Former Tobacco user Years Smoked: (onset 16yo, 1/2-1ppd x 38yrs, 25pyh, quit 2019) Assessment & Plan Assessment & Plan (1) Personal history of nicotine dependence: Comment: (onset 16yo, 1/2-1ppd x 38yrs, 25pyh, quit 2019) Code(s): Z87.891 - Personal history of nicotine dependence Category: Medical Plan: - SDM visit completed today in office. - Patient meets criteria for LDCT for lung cancer screening purposes and is asymptomatic. - Smoking cessation counseling offered. Patients can always call [phone]. - Will arrange for a LDCT scan of the chest for screening purposes at [facility]. - Risks, benefits, and alternatives were discussed in detail and the patient agrees to proceed. - Risks discussed include but are not limited to: radiation exposure, anxiety during testing and while awaiting results, false negatives, false positives and possibility of additional intervention such as further imaging or surgical procedures for benign disease. - Benefits are obviously detection of lung cancer at an early stage which can lead to improved outcomes. - Discussed the importance of screening program compliance with adherence to yearly LDCT scan as scheduled - or sooner interval scans for personalized screening regimen. - Discussed follow up plan. Our office will send a letter discussing results and if needed set up phone call and office visit based on CT findings. - Patient educated on results categorization and the management decisions for suspicious findings potentially found on the screening LDCT scan. Any patient with a Lung RADS score of 3 or 4 will be reviewed by a multidisciplinary team at [facility] to form a plan of action in regards to scan findings. - If further work up is warranted for a suspicious lung finding this will be followed by the Lung Cancer Screening program in conjunction with the Thoracic Surgery Department at [facility]. - A copy of the office note and LDCT will be sent to the patient's PCP - as well as documentation on any associated further plans of care. - Incidental findings on LDCT are the PCP's responsibility. These findings are indicated with an S finding on the LDCT Assessment. A note discussing the findings will be sent to the PCP who is then responsible for further management. - All questions answered.? Plan Of NOTE FOR PCP: Blood on UA on 06/05/18 & 03/20/21 - smoking is greatest risk factor for bladder cancer - encourage further work up if not done prior. Coding Level of Care Code Lung Cancer Screening G0296 Diagnoses Personal history of nicotine dependence Z87.891
--- OUTSIDE RECORDS SUMMARY | 2025-06-20 11:57 | XMS_ITS | Encounter Summary ---
Author Organization [employer] Address [address] [facility] [address] [place] [address] Care Team Providers Care Distance Learning Technician Name Role Phone Larisa Smith Primary Care Provider [phone] Reason for Visit * Reason Onset Date Comments Results 06/28/2024 Encounter Details Date Type Department Care Team ([facility] st Contact Info) Description 06/28/2024 Telephone [facility] MEDICINE [address] [place], [place] [phone] Larisa Smith ANP [address] [place], [place] [phone] Results Social History Tobacco Use Types Packs/Day [...] results: Labs Date when done: 06/11/24 Facility: [facility] Labs documented in this encounter Plan of Treatment Not on file documented as of this encounter Visit Diagnoses Not on filedocumented in this encounter Additional Health Concerns Assessment Noted Time PHQ-9 Depression Total Score: 1 09/21/19 24 9:52 AM EST documented as of this encounter Care Teams Distance Learning Technician Relationship Specialty Start Date End Date Larisa Smith ANP [address] [place] [address] PCP - General Family Medicine 07/19/22 documented as of this encounter
--- OUTSIDE RECORDS SUMMARY | 2025-06-20 11:57 | XMS_ITS | Encounter Summary ---
Author Organization [employer] Address [address] [facility] [address] [place] [address] Care Team Providers Care Leather Patcher Name Role Phone Larisa Smith Primary Care Provider Reason for Visit * Reason Onset Date Comments Nurse Triage 04/16/2024 Encounter Details Date Type Department Care Team ([facility] st Contact Info) Description 04/16/2024 Telephone [facility] MEDICINE [address] [place], [place] [phone] Larisa Smith ANP [address] [place], [place] [phone] Nurse Triage Social History Tobacco Use Types [...] 04/16/2024 10:30 AM EDT Triage call with [employer] Machine Operator ID [id number] Pt reports eyelashes fall out, grow back [...] documented as of this encounter Care Teams Leather Patcher Relationship Specialty Start Date End Date Larisa Smith ANP [address] [place] [address] PCP - General Family Medicine 07/19/22 documented as of this encounter
--- OUTSIDE RECORDS SUMMARY | 2025-06-20 11:57 | XMS_ITS | Clinical Summary ---
Author Organization [employer] Address [address] [facility] 7[address] [place] [address] Care Team Providers Care Social Services Name Role Phone Jose Fernandez OSVALDO Primary Care Provider [phone] Allergies No known active allergies Medications Calcium Carb-Cholecalcif grant 600-10 MG-MCG tabletIndication s:Osteopenia of neck of femur, unspecified laterality Take 1 tablet by mouth 2 times daily. 180 tablet 2 5 Active loratadine (Claritin) 10 MG tablet Take 1 tablet (10 mg) by mouth Once per day. 30 tablet 11 5 04/29/20 26 Active ibuprofen 600 MG tabletIndication s:Right elbow pain Take 1 tab every 8 hours with food for 1 week, then as needed for pain up to TID 60 tablet 5 Active ciclopirox (Ciclodan) 8 % solutionIndicati ons:Onychomycosi s Apply topically at bedtime. To affected nails 6 mL 11 5 Active triamcinolone (Kenalog) 0.1 % creamIndications :Rash Apply topically 2 times daily. To tops of feet 45 g 1 5 Active Active Problems Problem Noted Date Diagnosed Date Osteopenia after menopause 11/26/2024 Protrusion of lumbar intervertebral disc 023 Chronic constipation 06/05/2018 Chronic neck pain 06/05/2018 Rash 06/05/2018 Encounters Date Type Department Care Team Description 06/20/2025 Orders Only [facility] External Provider, [facility] 05/06/2025 Orders Only [facility] [address] [place] [address] Jose Fernandez ANP 05/06/2025 Telephone [facility] [address] [place] [address] Jose Fernandez ANP Medication Question 04/25/2025 Refill [facility] [address] [place] [address] Jose Fernandez ANP Osteopenia of neck of femur, unspecified laterality; Right elbow pain 03/24/2025 1:30 PM EDT Office Visit [address] [address] Jose Fernandez ANP Healthcare maintenance (Primary Dx); Screening mammogram for breast cancer; Osteopenia after menopause; Hypertriglyceridemia; Need for hepatitis B screening test; Need for hepatitis C screening test; Former cigarette smoker; Rash; Right elbow pain; Onychomycosis 03/24/2025 Travel 03/21/2025 Telephone [facility] [place] [address] Jose Fernandez ANP Chart Prep from Last 3 Months Immunizations Immunization Administration [...] FIT 1965 FOBT 1965 Sigmoidoscopy 1965 Hepatitis B Vaccines (1 of 3 - 19+ 3-dose series) 1985 Zoster Vaccines (1 of 2) 2016 COVID-19 Vaccine ( season) 2025 11/20/2021, 05/25/2021, 05/04/2021 Influenza Vaccine (#1) 2025 07/16/2019, 2017 Pneumococcal Vaccine: 50+ Years (1 of 1 - PCV) 09/09/2025 Postponed from 2016 (Patient Refused) SDOH Screening 09/23/2025 09/23/2024 Mammogram 09/29/2025 09/29/2023, 06/06/2018 Alcohol/Substance Use Screening 03/24/2026 03/24/2025 Depression Screening 03/24/2026 03/24/2025, 03/24/20 25 Disability Screening 03/24/2026 03/24/2025 Tobacco Screening 03/24/2026 03/24/2025 Diabetes: Hemoglobin A1C 05/01/2026 025, 06/11/2024, 09/29/2023, Additional history exists Cervical Cancer Screening 11/24/2026 HPV/Cotest 11/24/2026 11/24/2021, 08/15/2018 Pap Smear 11/24/2026 11/24/2021 Colonoscopy 08/28/2027 Colorectal Cancer Screening 08/28/2027 DTaP/Tdap/Td Vaccines (2 - Td or Tdap) 03/24/2033 03/24/2023 RSV Patients and Patients Aged 60 years or older (1 - 1-dose 75+ series) 2041 HIV Screening Completed 09/29/2023 Hepatitis C Screening Completed 05/01/2025 HIB Vaccines Aged Out No longer eligi [...] Procedure Name Priority Date/Time Associated Diagnosis Comments LDCT LUNG SCREENING Routine 06/20/2025 1 1:00 AM EDT LIPID PANEL, STANDARD Routine 05/01/2025 7:44 AM EDT Hypertriglyceridemi a Healthcare maintenance HEPATITIS C AB W/REFL TO HCV RNA, QN, PCR Routine 05/01/2025 7:44 AM EDT Need for hepatitis C screening test HEPATITIS B SURFACE ANTIBODY, QUALITATIVE Routine 05/01/2025 7:44 AM EDT Need for hepatitis B screening test HEPATITIS B SURFACE ANTIGEN, EIA Routine 05/01/2025 7:44 AM EDT Need for hepatitis B screening test HEPATITIS B CORE AB TOTAL Routine 05/01/2025 7:44 AM EDT Need for hepatitis B screening test HEMOGLOBIN A1C Routine 05/01/2025 7:44 AM EDT Hypertriglyceridemi a BASIC METABOLIC PANEL Routine 05/01/2025 7:44 AM EDT Osteopenia after menopause VITAMIN D,25-OH,TOTAL,IA Routine 05/01/2025 7:44 AM EDT Osteopenia after menopause BI MAMMOGRAM SCREENING TOMOSYNTHESIS BILATERAL Routine 09/29/2023 1:15 PM EST HIV 1/2 ANTIGEN/ANTIBODY, FOURTH GENERATION W/RFL Routine 09/29/2023 7:37 AM EST Numbness and tingling of both feet THINPREP IMAGING PAP AND HPV MRNA E6/E7, WITH CT/NG, TRICHOMONAS Routine 11/24/2021 11:39 AM EDT from Last 3 Months or Most Recently Relevant to Health Maintenance Results * CT Lung Screening Low dose (06/20/2025 11:00 AM EDT) Anatomical Region Laterality Modality Lung Computed Tomogra phy 06/20/2025 11:0 0 AM EDT Narrative 06/20/2025 11:30 AM EDT [place] [address] CT Scan Report Signed Patient: Roxann Wylie MR#: [id number] : 1965 Acct:[id number] Age/Sex: 59 / F ADM Date: 06/20/25 Loc: HO.CT Attending Dr: Megan Rodriguez PA-C Ordering Physician: Megan Rodriguez PA-C Date of Service: 06/20/25 Procedure(s): CT lung screening Accession Number(s): [id number] cc: Megan Rodriguez PA-C; JOSE FERNANDEZ NP Report Number: [id number]: Total DLP = 85.00 mGy-cm Reason for Exam: Z87.891 - Personal history of nicotine dependence EXAMINATION: CT LOW-DOSE SCREENING CHEST WITHOUT CONTRAST CLINICAL INFORMATION: Nicotine dependence. COMPARISON: Chest x-ray 08/23/2019 TECHNIQUE: Multidetector volumetric CT imaging of the chest is performed on a Siemens SOMATOM Definition scanner without contrast using low dose technique. Additional 2D coronal and sagittal reformatted images and axial 3D maximum intensity projection (MIP) images are generated on the CT workstation. This CT examination was performed using dose optimization techniques as appropriate, variously including the following: *Automated exposure control *Adjustment of mA and/or kV according to patient size (this includes techniques or standardized protocols for targeted exams where dose is matched to indication/reason for exam; i.e. extremities or head) *Use of iterative reconstruction technique CTDIvol: 85 mGy. FINDINGS: PULMONARY NODULES: There is a 4 mm pleural-based nodule left lower lobe axial image 92/4, 3 mm nodule right middle lobe axial image 75/4 and 4 mm nodule left upper lobe axial image 31/4. There are punctate 2 nodules right upper lobe axial image 51/4. No additional nodule seen. LUNGS: Lungs bilaterally symmetrically expanded. No effusion or pneumothorax. Central airways patent. MEDIASTINUM: There are lobes are symmetric and normal. The central trachea and the bronchi appears widely patent. Heart size is normal caliber. The thoracic aorta is of normal caliber. No pericardial effusion seen. CORONARY ARTERY CALCIFICATION: Trace coronary artery calcification seen THYROID GLAND: Unremarkable to the extent seen. CARDIOVASCULAR STRUCTURES: Size is normal caliber. No paracardiac fluid collection noted. CHEST WALL/AXILLA: Unremarkable. UPPER ABDOMEN: Visualized liver, spleen, pancreas and bilateral adrenal glands unremarkable. The gallbladder has been surgically removed. OSSEOUS STRUCTURES: No suspicious focal findings. CT/CT lung screening IMPRESSION: 4 mm and less less lung nodules. No abnormal mediastinal adenopathy. Left ASSESSMENT: 1. Lung-RADS Category 2: Benign appearance or behavior of nodules. 2. Lung-RADS Category S: None significant. RECOMMENDATION: 12 month low-dose CT. Electronically signed by: Que Adame MD 06/20/2025 11:27 AM EDT RP Dictated By: Que Adame MD Signed By: <Electronically signed by Que Adame MD in OV> 06/20/25 1127 DD/ 1100 TD/TT: 06/20/25 1114 Photography Intern: [facility] Procedure Note Donotuseinterpreter, Image - 06/20/[address] [place] [address] [address] Scan Report Signed Patient: Roxann Wylie AMR#: [id number] : 1965Acct:[id number] Age/Sex: 59 / FADM Date: 06/20/25 Loc: .CT Attending Dr: Megan Rodriguez PA-C Ordering Physician: Megan Rodriguez PA-C Date of Service: 06/20/25 Procedure(s): CT lung screening Accession Number(s): [id number] cc: Megan Rodriguez PA-C; JOSE FERNANDEZ NP Report Number: [id number]: Total DLP = 85.00 mGy-cm Reason for Exam: Z87.891 - Personal history of nicotine dependence EXAMINATION: CT LOW-DOSE SCREENING CHEST WITHOUT CONTRAST CLINICAL INFORMATION: Nicotine dependence. COMPARISON: Chest x-ray 08/23/2019 TECHNIQUE: Multidetector volumetric CT imaging of the chest is performed on a Siemens SOMATOM Definition scanner without contrast using low dose technique. Additional 2D coronal and sagittal reformatted images and axial 3D maximum intensity projection (MIP) images are generated on the CT workstation. This CT examination was performed using dose optimization techniques as appropriate, variously including the following: *Automated exposure control *Adjustment of mA and/or kV according to patient size (this includes techniques or standardized protocols for targeted exams where dose is matched to indication/reason for exam; i.e. extremities or head) *Use of iterative reconstruction technique CTDIvol: 85 mGy. FINDINGS: PULMONARY NODULES: There is a 4 mm pleural-based nodule left lower lobe axial image 92/4, 3 mm nodule right middle lobe axial image 75/4 and 4 mm nodule left upper lobe axial image 31/4. There are punctate 2 nodules right upper lobe axial image 51/4. No additional nodule seen. LUNGS: Lungs bilaterally symmetrically expanded. No effusion or pneumothorax. Central airways patent. MEDIASTINUM: There are lobes are symmetric and normal. The central trachea and the bronchi appears widely patent. Heart size is normal caliber. The thoracic aorta is of normal caliber. No pericardial effusion seen. CORONARY ARTERY CALCIFICATION: Trace coronary artery calcification seen THYROID GLAND: Unremarkable to the extent seen. CARDIOVASCULAR STRUCTURES: Size is normal caliber. No paracardiac fluid collection noted. CHEST WALL/AXILLA: Unremarkable. UPPER ABDOMEN: Visualized liver, spleen, pancreas and bilateral adrenal glands unremarkable. The gallbladder has been surgically removed. OSSEOUS STRUCTURES: No suspicious focal findings. CT/CT lung screening IMPRESSION: 4 mm and less less lung nodules. No abnormal mediastinal adenopathy. Left ASSESSMENT: 1. Lung-RADS Category 2: Benign appearance or behavior of nodules. 2. Lung-RADS Category S: None significant. RECOMMENDATION: 12 month low-dose CT. Electronically signed by: Que Adame MD 06/20/2025 11:27 AM EDT Dictated By: Que Adame MD Signed By: <Electronically signed by Que Adame MD in OV> 06/20/25 1127 DD/ 1100 TD/TT: 06/20/25 1114 Photography Intern: [facility] External Provider IMG CT PROCEDURES Final Result * (ABNORMAL) Vitamin D, 25-Hydroxy, Total, Immunoassay (05/01/2025 7:44 AM EDT) Vitamin D 25-OH Total 20.5(L) >30 ng/mL [facility] Comment: Health Based Reference Values*< 20 ng/mL Aesuzekfc78-84 ng/mL Insufficient> 30 ng/mL Sufficient*Bhargavi PETERSON. N Engl J Med. 2007;357:266-280There is no well-established upper level of normal vitamin Dlevels. Some laboratories use 50 ng/mL as an upper limit ofnormal. However, toxicity is patient-dependent and may occurat any level. Careful correlation with the patient'spresentation is necessary and, if there is concern forvitamin D toxicity, treatment should be consideredirrespective of the serum level.Care must be taken in interpreting Vitamin D results fromdifferent laboratories and methodologies. Published datademonstrated that results from patients undergoinghemodialysis may show a negative bias when tested withvarious automated 25-OH vitamin D assays when compared toLC-MS/MS.When testing samples from patients whose predominant form ofVitamin D is Vitamin D2, such as patients receiving VitaminD2 supplementation, results that are subtherapeutic shouldbe confirmed with another method such as LC-MS/MS. Blood Venous blood specimen / Unknown 05/01/2025 7:44 AM EDT 05/01/2025 7:44 AM EDT us Jose Fernandez [facility] LAB BLOOD ORDERABLES Final Resul t Performing Organization Address City/[facility]/ZIP Co de Phone Number [facility] [address] [place] [phone] * Hepatitis C Antibody with Reflex to HCV, RNA, Quantitative, Real-Time PCR (05/01/2025 7:44 AM EDT) Hepatitis C Antibody Nonreactive Nonreactive [facility] Comment:Antibodies to HCV no t detected; does not exclude early acuteHCV infection. Blood Venous blood specimen / Unknown 05/01/2025 7:44 AM EDT 05/01/2025 7:44 AM EDT us Jose Fernandez [facility] LAB BLOOD ORDERABLES Final Resul t [facility] [address] [place] [phone] * Hepatitis B surface antigen, EIA (05/01/2025 7:44 AM EDT) Pathologist [facility] Hepatitis B Surface Ag Negative Negative [facility] Blood Venous blood specimen / Unknown 05/01/2025 7:44 AM EDT 05/01/2025 7:44 AM EDT Jose Fernandez ANP LAB BLOOD ORDERABLES Final Resul t Performing Organization Address [facility] Co de Phone Number [facility] [address] [place] [phone] * Hepatitis B Core Antibody, Total (05/01/2025 7:44 AM EDT) Pathologist [facility] Hepatitis B Core Antibody Nonreactive Nonreactive [facility] Blood Venous blood specimen / Unknown 05/01/2025 7:44 AM EDT 05/01/2025 7:44 AM EDT Jose Fernandez ANP LAB BLOOD ORDERABLES Final Resul t Performing Organization Address [facility] Co de Phone Number [facility] [address] [place] [phone] * Hepatitis B Surface Antibody, Qualitative (05/01/2025 7:44 AM EDT) ~Hepatitis B Surface Antibody NONREACTIVE Nonreactive [facility] Comment:Nonreactive: < 8.00 mIU/mL Blood Venous blood specimen / Unknown 05/01/2025 7:44 AM EDT 05/01/2025 7:44 AM EDT Jose Fernandez ANP LAB BLOOD ORDERABLES Final Resul t Performing Organization Address [facility] Co de Phone Number [facility] [address] [place] [address] [phone] * Hemoglobin A1c (05/01/2025 7:44 AM EDT) Hemoglobin A1c 6.0 <6.0 % [facility] Comment:Hemoglobin A1C Refer ence Range Adults: 4.8 - 6.0 % Non diabetic: < 6.0 % Goal: < 7.0 %Additional Action Suggested: > 8.0 %Note: Hemoglobin A1c results are invalid for patients with abnormal amounts of HbF. Blood transfusions may impact the HbA1c concentration in the patient sample. Estimated Average Glucose 126 mg/dL [facility] Comment:eAG = Estimated ave rage glucose which is %A1C expressed asaverage glucose, using the formula of the A2R-ZzxhvueCgksuci Glucose study (ADAG), Diabetes Care, Vol.31,#8,Mar. 2007 Blood Venous blood specimen / Unknown 05/01/2025 7:44 AM EDT 05/01/2025 7:44 AM EDT [facility] LAB BLOOD ORDERABLES Final Resul t [facility] [address] [place] [address] [phone] * (ABNORMAL) Lipid Panel, Standard (05/01/2025 7:44 AM EDT) Triglycerides 242(H) <150 mg/dL [facility] Comment:Desirable Triglyceri de: less than 150 mg/dLBorderline High Triglyceride 150-199 mg/dLHigh Triglyceride: 200-499 mg/dLVery High Triglyceride: greater than or equal to 5OO mg/dL Cholesterol 222(H) <200 mg/dL [facility] Comment:Desirable Cholestero l: less than 200 mg/dLBorderline High Cholesterol: 200-239 mg/dLHigh Cholesterol: greater than 239 mg/dL LDL Cholesterol Calculated 131(H) <100 mg/dL [facility] Comment:Desirable LDL: less than 100 mg/dLNear Optimal/Above Optimal LDL: 110- 129 mg/dLBorderline High LDL: 130-159 mg/dLHigh LDL: 160-189 mg/dLVery High LDL: greater than or equal to 190 mg/dL HDL Cholesterol 43 >40 mg/dL [facility] Comment:Desirable HDL: great er than 40 mg/dL Note: This HDL assay may give artificially low results in patients with liver disease. Blood Venous blood specimen / Unknown 05/01/2025 7:44 AM EDT 05/01/2025 7:44 AM EDT Jose Fernandez ANP LAB BLOOD ORDERABLES Final Resul t Performing Organization Address [facility] Co de Phone Number [facility] [address] [place] [address] [phone] * (ABNORMAL) Basic Metabolic Panel (05/01/2025 7:44 AM EDT) Sodium 140 135 - 145 mmol/L [facility] Potassium 4.1 3.3 - 5.1 mmol/L [facility] Chloride 108 96 - 108 mmol/L [facility] Carbon Dioxide 26 22 - 29 mmol/L [facility] Anion Gap 10(L) 12 - 20 [facility] Urea Nitrogen (BUN) 19(H) 9 - 16 mg/dL [facility] Creatinine, Serum 0.62 0.5 - 1.4 mg/dL [facility] Estimated Glomerular Filt Rate >60 [facility] Comment:Chronic Kidney Disea se: Estimated GFR < 60 mL/min/1.14o7Oeakdy Kidney Disease: Estimated GFR < 15 mL/min/1.73m2 Glucose 113 60 - 115 mg/dL [facility] Calcium 9.0 8.4 - 10.2 mg/dL [facility] Blood Venous blood specimen / Unknown 05/01/2025 7:44 AM EDT 05/01/2025 7:44 AM EDT Jose Fernandez ANP LAB BLOOD ORDERABLES Final Resul t Performing Organization Address [facility] Co de Phone Number [facility] [address] [place] [address] [phone] * BI Mammogram Screening Tomosynthesis Bilateral (09/29/2023 1:15 PM EST) Anatomical Region Laterality Modality Breast Bilateral Mammography 09/29/2023 1:15 PM EST Narrative 10/26/2023 9:44 PM EST [address] [place] [address] Mammography Report Signed Patient: Roxann Wylie MR#: [id number] : 1965 Acct:[id number] Age/Sex: 58 / F ADM Date: 09/29/23 Loc: HO.MAMMO Attending Dr: Jose Fernandez NP Ordering Physician: JOSE FERNANDEZ NP Results: 1Negative Date of Service: 09/29/23 Follow Up: 1 Year From Orig inal Mammogram Procedure(s): MM tomosynthesis screening BI Accession Number(s): [id number] cc: JOSE FERNANDEZ NP EXAMINATION: MM SCREENING [...] signed by Ashly Carlton MD in OV> 10/26/231 DD/ 1315 TD/TT: Photography Intern: Procedure Note Donotuseinterpreter, Image - 10/26/[address] [place] [address] Mammography Report Signed Patient: Roxann Wylie AMR#: [id number] : 1965Acct:[id number] Age/Sex: 58 / FADM Date: 09/29/23 Loc: [place] Attending Dr: Jose Fernandez NP Ordering Physician: JOSE FERNANDEZ NPResults: 1Negative Date of Service: 09/29/23Follow Up: 1 Year From Orig inal Mammogram Procedure(s): MM tomosynthesis screening BI Accession Number(s): [id number] cc: JOSE FERNANDEZ NP EXAMINATION: MM SCREENING [...] in OV> 10/26/23 2141 DD/ 1315 TD/TT: Photography Intern: Jose Fernandez ANP IMG BI PROCEDURES Final Result * HIV-1/2 Antigen and Antibodies, Fourth Generation, with Reflexes (09/29/2023 7:37 AM EST) HIV AB/AG Nonreactive Nonreactive [facility] Comment:HIV-1 p24 Ag and/or HIV-1/HIV-2 Ab not detected.A test result that is nonreactive does not exclude thepossibility of exposure to or infection with HIV-1 and/orHIV-2. Nonreactive results in this assay for individualswith prior exposure to HIV-1 and/or HIV-2 may be due toantigen and antibody levels that are below the limit ofdetection of this assay.The [employer] HIV Ag/Ab Combo assay result andsupplemental assay results should be interpreted inconjunction with the patient's clinical presentation,history and other laboratory results. If the results areinconsistent with clinical evidence, additional testing issuggested to confirm the result. Blood Venous blood specimen / Unknown 09/29/2023 7:37 AM EST 09/29/2023 7:37 AM EST [facility] LAB BLOOD ORDERABLES Final Resul t [facility] [address] [place] [address] [phone] * THINPREP TIS PAP AND HPV mRNA E6/E7, CT/NG, TRICH (11/24/2021 11:39 AM EDT) Chlamydia trachomatis RNA, TMA, Urogenital NOT DETECTED NOT DETECTED [facility] Clinical Information: None given [facility] COMMENT SEE COMMENT [facility] Comment: The analytical performance characteristics of this assay, when used to test SurePath(TM) specimens have been determined by [employer]. The modifications have not been cleared or approved by the FDA. This assay has been validated pursuant to the CLIA regulations and is used for clinical purposes. For additional information, please refer to https://education.Camerborn.Sosei/faq/YDI419 (This link is being provided for information/ [...] has been evaluated with computer assisted technology. [facility] Requisition Approver: SEE COMMENT [facility] Comment: DCR, CT(ASCP) CT screening location: [address] [address] HPV nRNA E6/E7 Not Detected Not Detected [facility] Comment: Methodology: Slat Twister-Mediated Amplification This assay detects E6/E7 viral messenger RNA (mRNA) from 14 high-risk HPV types (16,18,31,33,35,39,45,51,52,56,58,59,66,68). The analytical performance characteristics of this assay have been determined by [employer]. The modifications have not been cleared or approved by the FDA. This assay has been validated pursuant to the CLIA regulations and is used for clinical purposes. For additional information, please refer to http://[employer].PiniOn/faq/AFA132d2 (This link if provided for information/ educational [...] of this assay have been determined by [employer]. The modifications have not been cleared or approved by the FDA. This assay has been validated pursuant to the CLIA regulations and is used for clinical purposes. For additional information, please refer to http://education.PiniOn/ faq/Trichomonastma (This link is being provided for information/ educational purposes only.) 11/24/2021 11:3 9 AM EDT us Mallory Wills CNM LAB PATHOLOGY ORDERABLES Final Result [facility] [address] from Last 3 Months or Most Recently Relevant to Health Maintenance Insurance * Guarantor: Roxann Wylie Account Type Relation to Patient Date of Phone Billing Address Personal/Family Self [address] Care Teams Social Services Relationship Specialty Start Date End Date Jose Fernandez ANP [address] [place] [phone] PCP - General Family Medicine 07/19/22
--- OUTSIDE RECORDS SUMMARY | 2025-06-20 11:57 | XMS_ITS | Encounter Summary ---
Author Organization [employer] Address [address] [place] [address] [address], [place] [address] Care Team Providers Care Mine Engineer Name Role Phone Larisa Smith Primary Care Provider [phone] Reason for Visit * Reason Onset Date Comments Appointment Request 10/05/2022 Encounter Details Date Type Department Care Team ([facility] st Contact Info) Description 10/05/2022 Telephone [facility] [address] [place], [place] [phone] Larisa Smith ANP [address] [place], [place] [phone] Appointment Request Social History Tobacco Use Types [...] on filedocumented in this encounter Care Teams Mine Engineer Relationship Specialty Start Date End Date Larisa Smith ANP [address] [place] [phone] PCP - General Family Medicine 07/19/22 documented as of this encounter
--- OUTSIDE RECORDS SUMMARY | 2025-06-20 11:58 | XMS_ITS | Encounter Summary ---
Author Organization [employer] Address [address] [facility] [address] [place] [address] Care Team Providers Care Maintenance Groundman Name Role Phone Luis Jose RILEY Primary Care Provider [phone] Encounter Details Date Type Department Care Team (Late st Contact Info) Description 06/20/2025 Orders Only [facility] External Provider, [facility] Social History Tobacco Use Types Packs/Day Years [...] on file documented as of this encounter Procedures Procedure Name Priority Date/Time Associated Diagnosis Comments LDCT LUNG SCREENING Routine 06/20/2025 1 1:00 AM EDT documented in this encounter Results * CT Lung Screening Low dose (06/20/2025 11:00 AM EDT) Anatomical Region Laterality Modality Lung Computed Tomogra phy 06/20/2025 11:0 0 AM EDT Narrative 06/20/2025 11:30 AM EDT [place] [address] [address] Scan Report Signed Patient: Roxann Wylie MR#: [id number] : 1965 Acct:[id number] Age/Sex: 59 / F ADM Date: 06/20/25 Loc: HO.CT Attending Dr: Megan Rodriguez PA-C Ordering Physician: Megan Rodriguez PA-C Date of Service: 06/20/25 Procedure(s): CT lung screening Accession Number(s): [id number] cc: Megan Rodriguez PA-C; JOSE FERNANDEZ NP Report Number: [id number]: Total DLP = 85.00 mGy-cm Reason for [...] 06/20/25 1127 DD/ 1100 TD/TT: 06/20/25 1114 Trade Clerk: AVSI Procedure Note Donotuseinterpreter, Image - 06/20/[address] [address] [address] Scan Report Signed Patient: Real Flash,[facility]oxann [facility]#: [id number] : 1965Acct:[id number] Age/Sex: 59 / FADM Date: 06/20/25 Loc: HO.CT Attending Dr: Megan Rodriguez PA-C Ordering Physician: Megan Rodriguez PA-C Date of Service: 06/20/25 Procedure(s): CT lung screening Accession Number(s): [id number] cc: Megan Rodriguez PA-C; JOSE FERNANDEZ NP Report Number: [id number]: Total DLP = 85.00 mGy-cm Reason for [...] 06/20/25 1127 DD/ 1100 TD/TT: 06/20/25 1114 Trade Clerk: AVIS [facility] External Provider IMG CT PROCEDURES Final Result documented in this encounter Visit Diagnoses Not on filedocumented in this encounter Additional Health Concerns Assessment Noted Time PHQ-9 Depression Total Score: 2 03/24/20 25 2:26 PM EDT documented as of this encounter Care Teams Maintenance Groundman Relationship Specialty Start Date End Date Jose Fernandez ANP [address] [place] [address] PCP - General Family Medicine 07/19/22 documented as of this encounter
--- OUTSIDE RECORDS SUMMARY | 2025-06-20 11:58 | XMS_ITS | Encounter Summary ---
Author Organization [employer] Address [address] [facility] [address] [place] [address] Care Team Providers Care Saloon Keeper Name Role Phone Larisa Smith Primary Care Provider [phone] Reason for Visit * Reason Onset Date Comments Med Refill 07/26/2023 Encounter Details Date Type Department Care Team ([facility] st Contact Info) Description 07/26/2023 Telephone [facility] MED[facility] [address] [place], [place] [phone] Larisa Smith ANP [address] [place], [place] [phone] Med Refill Social History Tobacco Use Types [...] muscle relaxer. Any questions please contact at [phone] documented in this encounter Plan of Treatment Not on file documented as of this encounter Visit Diagnoses Not on filedocumented in this encounter Care Teams Saloon Keeper Relationship Specialty Start Date End Date Larisa Smith ANP [address] [place] [id number] PCP - General Family Medicine 07/19/22 documented as of this encounter
--- OUTSIDE RECORDS SUMMARY | 2025-06-20 11:58 | XMS_ITS | Encounter Summary ---
Author Organization [employer] Address [address] [facility] [address] [place] [address] Care Team Providers Care Cocoa Roaster Name Role Phone Larisa Smith Primary Care Provider [phone] Encounter Details Date Type Department Care Team (Late st Contact Info) Description 12/07/2022 Orders Only [facility] [address] [place], [place] [phone] Toro Diaz MD [address] [place] [address] Paresthesias (Primary Dx) Social History Tobacco Use [...] sensation documented in this encounter Care Teams Cocoa Roaster Relationship Specialty Start Date End Date Larisa Smith ANP [address] [place] [address] PCP - General Family Medicine 07/19/22 documented as of this encounter
--- OUTSIDE RECORDS SUMMARY | 2025-06-20 11:58 | XMS_ITS | Encounter Summary ---
Author Organization [employer] Address [address] [facility] [address] [place] [address] Care Team Providers Care Strap Stitcher Name Role Phone Larisa Smith Primary Care Provider [phone] Encounter Details Date Type Department Care Team (Late st Contact Info) Description 05/06/2025 Orders Only [facility] [address] [place], [place] [phone] Larisa Smith ANP [address] [place], [place] [phone] Social History Tobacco Use Types Packs/Day Years [...] documented as of this encounter Care Teams Strap Stitcher Relationship Specialty Start Date End Date Larisa Smith ANP [address] [place] [address] PCP - General Family Medicine 07/19/22 documented as of this encounter
--- OUTSIDE RECORDS SUMMARY | 2025-06-20 11:58 | XMS_ITS | Encounter Summary ---
Author Organization [employer] Address [address] [facility] [address] [place] [address] Care Team Providers Care Yarder Operator Name Role Phone Larisa Smith Primary Care Provider [phone] Reason for Visit * Reason Onset Date Comments Letter for School/Work 10/12/2023 Encounter Details Date Type Department Care Team ([facility] st Contact Info) Description 10/12/2023 Telephone [facility] MEDICINE [address] [place], [place] [phone] Larisa Smith ANP [address] [place] [address] Letter for School/Work Social History Tobacco Use [...] now, advised to give call back to [facility] if any questions or concerns. Pt. Verbally [...] documented as of this encounter Care Teams Yarder Operator Relationship Specialty Start Date End Date Larisa Smith ANP [address] [place] [address] PCP - General Family Medicine 07/19/22 documented as of this encounter
== END 2025-06-20 10:56 | disposition home or self-care (01) ==
LOC: HO.HPS 10:27
PROVIDERS: PCP Nurse Practitioner Primary Care; Referring Provider Nurse Practitioner Primary Care; Visit Provider Physician Assistant Medical
DX: Z87.891 Personal history of nicotine dependence (principal)
CPT/HCPCS: G0296

== ENCOUNTER 2025-06-20 10:44 | Outpatient (REF) | payer OTHER, SELFPAY ==
--- NOTE | ~2025-06-20 | CT_ITS ---
EXAMINATION: CT LOW-DOSE SCREENING CHEST WITHOUT CONTRAST CLINICAL INFORMATION: Nicotine dependence. COMPARISON: Chest x-ray 08/23/2019 TECHNIQUE: Multidetector volumetric CT imaging of the chest is performed on a Siemens SOMATOM Definition scanner without contrast using low dose technique. Additional 2D coronal and sagittal reformatted images and axial 3D maximum intensity projection (MIP) images are generated on the CT workstation. This CT examination was performed using dose optimization techniques as appropriate, variously including the following: *Automated exposure control *Adjustment of mA and/or kV according to patient size (this includes techniques or standardized protocols for targeted exams where dose is matched to indication/reason for exam; i.e. extremities or head) *Use of iterative reconstruction technique CTDIvol: 85 mGy. FINDINGS: PULMONARY NODULES: There is a 4 mm pleural-based nodule left lower lobe axial image 92/4, 3 mm nodule right middle lobe axial image 75/4 and 4 mm nodule left upper lobe axial image 31/4. There are punctate 2 nodules right upper lobe axial image 51/4. No additional nodule seen. LUNGS: Lungs bilaterally symmetrically expanded. No effusion or pneumothorax. Central airways patent. MEDIASTINUM: There are lobes are symmetric and normal. The central trachea and the bronchi appears widely patent. Heart size is normal caliber. The thoracic aorta is of normal caliber. No pericardial effusion seen. CORONARY ARTERY CALCIFICATION: Trace coronary artery calcification seen THYROID GLAND: Unremarkable to the extent seen. CARDIOVASCULAR STRUCTURES: Size is normal caliber. No paracardiac fluid collection noted. CHEST WALL/AXILLA: Unremarkable. UPPER ABDOMEN: Visualized liver, spleen, pancreas and bilateral adrenal glands unremarkable. The gallbladder has been surgically removed. OSSEOUS STRUCTURES: No suspicious focal findings. CT/CT lung screening IMPRESSION: 4 mm and less less lung nodules. No abnormal mediastinal adenopathy. Left ASSESSMENT: 1. Lung-RADS Category 2: Benign appearance or behavior of nodules. 2. Lung-RADS Category S: None significant. RECOMMENDATION: 12 month low-dose CT. Electronically signed by: Que Adame MD 06/20/2025 11:27 AM EDT
== END 2025-06-20 10:45 | disposition home or self-care (01) ==
LOC: HO.CT 10:44
PROVIDERS: PCP Nurse Practitioner Primary Care; Visit Provider Physician Assistant Medical
DX: Z12.2 Encounter for screening for malignant neoplasm of respiratory organs (principal); Z87.891 Personal history of nicotine dependence
CPT/HCPCS: 71271

== ENCOUNTER → 2025-06-20 10:48 | Outpatient (BNV) | payer OTHER, SELFPAY | PROVIDERS: PCP Nurse Practitioner Primary Care; Visit Provider Radiology Diagnostic Radiology | DX: Z87.891 Personal history of nicotine dependence (principal) | CPT/HCPCS: 71271 ==

== ENCOUNTER 2025-07-16 13:07 | Outpatient (REF) | payer OTHER, SELFPAY ==
--- NOTE | ~2025-07-16 | MM_ITS ---
EXAMINATION: MM SCREENING DIGITAL BREAST TOMOSYNTHESIS, BILATERAL CLINICAL INFORMATION: Screening. Asymptomatic. COMPARISON: Mammography: Comparison is made with available priors TECHNIQUE: Digital breast mammography with tomosynthesis is performed in both the craniocaudal and mediolateral oblique views along with computer-aided detection (CAD). FINDINGS: There are scattered areas of fibroglandular density. There are no significant masses, abnormal calcifications, or other abnormalities. MM/MM tomosynthesis screening BI IMPRESSION: No mammographic evidence of malignancy. ASSESSMENT: BI-RADS Category 1: Negative RECOMMENDATION: Routine annual mammography screening. 1 year F/U This examination should not preclude the clinical evaluation of a suspicious palpable abnormality. This patient's information was entered into a reminder system with a target due date for their next mammogram. Electronically signed by: Radhika Patel DO 07/17/2025 10:11 AM ARLEEN
== END 2025-07-16 13:08 | disposition home or self-care (01) ==
LOC: HO.MAMMO 13:07
PROVIDERS: PCP Nurse Practitioner Primary Care; Visit Provider Nurse Practitioner Primary Care
DX: Z12.31 Encounter for screening mammogram for malignant neoplasm of breast (principal)
CPT/HCPCS: 77063; 77067

== ENCOUNTER → 2025-07-16 13:15 | Outpatient (BNV) | payer OTHER, SELFPAY | PROVIDERS: PCP Nurse Practitioner Primary Care; Visit Provider Internal Medicine | DX: Z12.31 Encounter for screening mammogram for malignant neoplasm of breast (principal) | CPT/HCPCS: 77063; 77067 ==